=== PATIENT | female | born 1955 | race Caucasian/White ===

== ENCOUNTER → 2021-07-14 09:45 | Outpatient (CLI) | payer MEDICARE, OTHER, SELFPAY ==
[2021-07-14 11:38] LABS: COVID19 -Nasal RAPID Negative (Negative)
== END ==
PROVIDERS: PCP Student in an Organized Health Care Education/Training Program; Visit Provider Nurse Practitioner Family
DX: Z20.822 Contact with and (suspected) exposure to COVID-19 (principal); Z01.812 Encounter for preprocedural laboratory examination
CPT/HCPCS: 87635; C9803

== ENCOUNTER 2021-07-15 09:22 | Day surgery (SDC) | payer MEDICARE, OTHER, SELFPAY ==
[2021-07-15] VITALS (7 sets, daily range): BP systolic 104–129; BP diastolic 41–63; PULSE 77–84; RESP 12–18; TEMP 36.4–36.8; O2SAT 88–100; BMI 27.6
--- NOTE | 2021-07-15 | PATH_ITS ---
[facility] Accession Number: [id number] . 01 Material submitted: . PART A: gastrointestinal site - GASTRIC POLYP PART B: colon - COLON POLYPS X4 . 01 Clinical history: . DX COLONOSCOPY / EGD . 02 Diagnosis: A. Gastric Polyp: Fundic gland polyp. No evidence of Helicobacter organisms on H/E stain. Negative for intestinal metaplasia. Negative for dysplasia and malignancy. . B. Colon Polyps x4: Portions of tubular adenoma x2. Multiple fragments of acellular debris. MRV 07/17/2021 1007 Local . 02 Electronically signed: . Suha Waterman MD, Pathologist NPI- [id number] . 01 Gross description: . Part A: GASTRIC POLYP: Received in formalin is 1 fragment(s) of rob, soft tissue measuring 0.3 x 0.2 x 0.2 cm submitted entirely in 1 cassette(s) Part B: COLON POLYPS X4: Received in formalin are multiple fragment(s) of rob, soft tissue measuring 2.5 x 1.0 x 1.0 cm in aggregate submitted entirely in 1 cassette(s) /QBJ 07/16/2021 0709 Local . 02 Pathologist provided ICD-10: K63.5 . 02 CPT . 657707, [id number] Performed at: 01 [facility] [address], [place], [place] [id number] MD Daryn Salas MD Phone: [phone] Performed at: 02 [facility] [place] [address] [place], [place] [id number] MD Patrizia Infante MD Phone: [phone]
--- NOTE | 2021-07-15 10:12 | PM.HP.1 ---
History of Present Illness History of Present Illness Date Patient Seen: 07/15/21 Time Patient Seen: 10:12 Chief complaint: DX COLONOSCOPY & EGD Narrative: I reviewed my note from June 03 no major changes. Patient History Medical History Adenomatous colon polyp Anxiety Sorto's esophagus Cardiac dysrhythmia Cataract Cholecystectomy planned Chronic GERD Colonoscopy planned Constipation Depression Fibromyalgia Hernia Hiatal hernia Hypertension Hypothyroid IBS (irritable bowel syndrome) Lactose intolerance Memory impairment Osteopenia Rheumatoid aortitis Tonsillectomy planned Surgical History History of arthroplasty History of right oophorectomy Hx of appendectomy Family & Social History Social History: household members spouse Tobacco & Substance use: Smoking Status Never smoker alcohol intake never Substance Use Type does not use Meds Home Medications and Allergies Home Medications Medication Instructions Recorded Confirmed Type Tylenol Arthritis Pain 650 mg PO DAILY 07/15/21 07/15/21 History atorvastatin 20 mg tablet 20 mg PO DAILY 07/15/21 07/15/21 History duloxetine 20 mg capsule,delayed 20 mg PO DAILY 07/15/21 07/15/21 History release famotidine 20 mg tablet 20 mg PO DAILY 07/15/21 07/15/21 History hydroxychloroquine 200 mg tablet 300 mg PO DAILY 07/15/21 07/15/21 History levothyroxine 50 mcg tablet 50 mcg PO DAILY 07/15/21 07/15/21 History (Synthroid) lisinopril 20 mg tablet 20 mg PO DAILY 07/15/21 07/15/21 History pregabalin 50 mg capsule 50 mg PO DAILY 07/15/21 07/15/21 History tolterodine 4 mg capsule,extended 4 mg PO DAILY 07/15/21 07/15/21 History release 24 hr (Detrol LA) Allergies Allergy/AdvReac Type Severity Reaction Status Date / Time prochlorperazine Allergy Severe Anaphylaxis Verified 07/15/21 10:03 [From Compazine] meperidine Allergy Mild ITCHING Verified 07/15/21 10:03 oxycodone Allergy Mild ITCHING Verified 07/15/21 10:03 Penicillins Allergy Mild ITCHING Verified 07/15/21 10:03 Review of Systems Review of Systems ROS: Yes All systems reviewed with the patient and are negative except as otherwise documented Exam Vital Signs (past 8 hours): - 07/15/21 10:05 Temperature 97.6 F Pulse Rate 80 Respiratory Rate 18 Blood Pressure 127/63 Pulse Oximetry 100 Oxygen Delivery Method Room Air Const General: cooperative and comfortable Orientation: alert HENMT Head: normocephalic Ears: external ears normal Nose: external nose normal Face and sinus: normal facial exam Mouth: oral mucosae normal Eyes General: appearance normal, both eyes and all related structures Neck Neck: normal visual inspection Chest Chest: normal inspection of the chest Resp Effort & Inspection: normal respiratory effort Auscultation: clear to auscultation bilaterally Cardio Rate: regular rate Rhythm: regular rhythm Heart Sounds: no murmurs GI Inspection: normal to inspection Palpation: soft and No tender Auscultation: normal bowel sounds Skin General: no rashes or lesions noted and No jaundice Neuro General: patient alert and moves all extremities Cognition: normal cognition Speech: speech normal Extrem General: no pedal edema Psych Appearance: grossly normal Assessment & Plan Assessment & Plan narrative: Dysphagia history of possible Sorto's. Personal history of colon polyps. EGD and colonoscopy are pursued today. Time Spent With Patient Critical Care time: I spent a total of [] minutes of critical care time on this patient's care today; this time is exclusive of procedural time.
--- NOTE | 2021-07-15 10:15 | PM.PREOP ---
Pre-operative Note COVID-19 COVID-19 status: Negative Result date/Date tested (Pos, Neg/Pending): 07/14/21 Interval Note History & Physical reviewed/Exam performed by Physician: Yes Changes to H&P: No ASA Class (for procedural sedation): III
[2021-07-15] MEDS: SODIUM CHLORIDE 0.9% 1,000 ML 84 ML IV (10:19)
--- NOTE | 2021-07-15 11:37 | P.OP.EGD&C_ITS ---
Operative Date/Time/Diagnoses Date of procedure: 07/15/21 Time of procedure: 11:37 Pre-op diagnosis: Dysphagia remote history of possible Sorto's personal history of colon polyps Post-op diagnosis: same Procedure & Clinicians Study performed: EGD with biopsy colonoscopy with hot snare polypectomy Same procedure as scheduled: Yes Indications: Dysphagia remote history of possible Sorto's personal history of colon polyps Surgeon: Corona Villa Procedure Notes SCOAP/Timeout: Done Procedure in detail: After the risks and benefits were explained, written and verbal informed consent was obtained. The patient was brought into the procedure room and placed into the left lateral decubitus position. Please see nurse dispatcher chief coal slurry notes for sedation details. The scope was introduced into the mouth through the bite block and advanced under direct visualization to the 2nd portion of the duodenum. The scope was slowly withdrawn carefully examining the mucosa for any defects or lesions. Retroflexed views were accomplished in the stomach. The stomach was decompressed, the scope was then removed from the patient who tolerated the procedure well. The patient was then turned around digital rectal examination was accomplished no significant pathology appreciated the scope was introduced into the rectum and advanced to the cecum as identified by the appendiceal orifice and ileocecal valve. The scope was slowly withdrawn to carefully examine the mucosa for any defects or lesions. Multiple direct views were made through the dentate line for exclusion of pathology the colon was decompressed scope removed the patient tolerated the procedure well. Bowel prep adequate Pediatric colonoscope Scope withdrawal time: 10 minutes Sedation minutes: 38 Complications: none Impression: 1. Duodenum this is visually normal from the bulb through the 2nd portion. 2. Stomach: Patient had a few diminutive benign-appearing gastric polyps. One of these was sampled for histopathologic analysis. Retroflexed views of the LES were otherwise unremarkable. No significant pathology appreciated in the stomach. 3. Esophagus: The squamocolumnar junction basically correlated with the top of the gastric folds. The Z-line wondered slightly. No obvious suggestion of Sorto's. GE junction is at 36 cm from the incisors. Scant LA grade a erosive esophagitis was noted. I did not appreciate a stricture or ring. There was a small to moderate-sized sliding hiatal hernia present. The remainder of the esophagus was unremarkable. 4. Colon: Patient had a very tortuous challenging navigation. In the transverse colon there were 3 polyps and in the proximal descending 1 polyp all removed with hot snare polypectomy. These ranged in size from approximately 6 mm up to about 9 mm each. No additional significant pathology appreciated throughout. Endoscopic diagnosis 1. Hiatal hernia 2. Diminutive gastric polyps 3. LA grade a erosive esophagitis 4. Multiple colon polyps 5. Tortuous colon Post-procedure Recommendations: Colonscopy in 3 years Plan for aftercare: 1. Await histopathology 2. Continue anti-reflux therapy 3. Continue bowel regimen for soft regular stools 4. Repeat colonoscopy 3 years. Disposition: PACU
== END 2021-07-15 12:35 | disposition home or self-care (01) ==
PROVIDERS: PCP Student in an Organized Health Care Education/Training Program; Referring Provider Internal Medicine Gastroenterology; Visit Provider Internal Medicine Gastroenterology
PROC: 0DJ08ZZ Inspection of Upper Intestinal Tract, Via Natural or Artificial Opening Endoscopic (ICD-10-PCS; CPT 43235; principal; 2021-07-15 11:00)
PROC: 0DJD8ZZ Inspection of Lower Intestinal Tract, Via Natural or Artificial Opening Endoscopic (ICD-10-PCS; CPT 45378; 2021-07-15 11:00)
DX: Z12.11 Encounter for screening for malignant neoplasm of colon (principal); R13.10 Dysphagia, unspecified; Z86.010 Personal history of colon polyps; K44.9 Diaphragmatic hernia without obstruction or gangrene; I10 Essential (primary) hypertension; E03.9 Hypothyroidism, unspecified; K21.9 Gastro-esophageal reflux disease without esophagitis; F32.9 Major depressive disorder, single episode, unspecified; F41.9 Anxiety disorder, unspecified; Z87.19 Personal history of other diseases of the digestive system; K20.80 Other esophagitis without bleeding; K31.7 Polyp of stomach and duodenum; D12.6 Benign neoplasm of colon, unspecified
CPT/HCPCS: 45385; 43239; J2704

== ENCOUNTER → 2021-12-04 11:24 | Outpatient (CLI) | payer MEDICARE, OTHER, SELFPAY ==
[2021-12-04 12:36] LABS: Appearance Urine UA CLEAR; Bilirubin Urine UA NEGATIVE (NEGATIVE); Color Urine UA YELLOW; Glucose Urine UA TRACE g/dL (Negative); Ketones Urine UA NEGATIVE (NEGATIVE); Leukocyte Esterase Urine UA TRACE (NEGATIVE); Nitrite Urine UA NEGATIVE (Negative); Occult Blood Urine UA NEGATIVE (Negative); Protein Urine UA NEGATIVE (Negative); Specific Gravity Urine UA <=1.005 (1.000-1.035); Urobilinogen Urine UA 0.2 E.U./dL (0.2)
[2021-12-04 12:38] LABS: pH Urine UA 6.5 (4.5-8.0)
[2021-12-04 12:44] LABS: Bacteria Urine None Seen; Culture Indicated Urine Cult Not Indicated; RBC Urine None Seen (0-5/HPF); Urine Comments Microscopic Normal; WBC Urine None Seen (0-5/HPF)
[2021-12-04 12:47] LABS: Add Manual Diff / Slide Review NO; Basophils Absolute Auto 100 /uL (0-100); Basophils Percent Auto 0.9 % (0-2); Eosinophils Absolute Auto 100 /uL (0-450); Eosinophils Percent Auto 2.5 % (2-4); Hematocrit 40.7 % (36-46); Hemoglobin 13.6 g/dL (12.0-16.0); Lymphocytes Absolute Auto 1700 /uL (1100-4500); Lymphocytes Percent Auto 28.5 % (25-40); Mean Corpuscular HGB Conc 33.4 % (30-36); Mean Corpuscular Volume 89.9 fL (80-100); Monocytes Absolute Auto 400 /uL (0-900); Monocytes Percent Auto 7.4 % (3-14); Neutrophils Absolute Auto 3600 /uL (1500-7000); Neutrophils Percent Auto 60.7 % (50-75); Platelet Count 236 X10^3/uL (150-400); Red Blood Cell Count 4.53 X10^6/uL (4.0-5.2); Red Cell Distribution Width 14.4 % (11.6-14.8); White Blood Cell Count 5.9 X10^3/uL (4.5-11.0)
[2021-12-04 12:50] LABS: Hemoglobin A1C% w Est Avg Glu 5.8 % (4.0-6.0)
[2021-12-04 13:01] LABS: BUN Creatinine Ratio 22.6 (6-22); Blood Urea Nitrogen 14 mg/dL (7-17); Calcium 9.9 mg/dL (8.4-10.2); Carbon Dioxide 27 mmol/L (22-32); Chloride 99 mmol/L (98-107); Estimated Glomerular Filt Rate > 60.0 mL/min (>60); Glucose 80 mg/dL (80-110); HEMOLYSIS < 15 (0-50); Potassium 4.9 mmol/L (3.4-5.1); Sodium 134 mmol/L (137-145)
== END ==
PROVIDERS: PCP Student in an Organized Health Care Education/Training Program; Referring Provider Orthopaedic Surgery; Visit Provider Orthopaedic Surgery
DX: Z01.818 Encounter for other preprocedural examination (principal); R73.9 Hyperglycemia, unspecified; Z01.812 Encounter for preprocedural laboratory examination; E78.5 Hyperlipidemia, unspecified; N39.0 Urinary tract infection, site not specified
CPT/HCPCS: 36415; 80048; 81001; 83036; 85025; 93005

== ENCOUNTER → 2021-12-15 09:55 | Outpatient (CLI) | payer MEDICARE, OTHER, SELFPAY ==
[2021-12-15 13:12] LABS: COVID19 -Nasal RAPID Negative (Negative)
== END ==
PROVIDERS: PCP Student in an Organized Health Care Education/Training Program; Visit Provider Family Medicine Sleep Medicine
DX: Z20.822 Contact with and (suspected) exposure to COVID-19 (principal)
CPT/HCPCS: 87635; C9803

== ENCOUNTER 2021-12-16 06:01 | Day surgery (SDC) | payer MEDICARE, OTHER, SELFPAY ==
[2021-12-08 10:39] VITALS: BMI 28.0
[2021-12-16] VITALS (14 sets, daily range): BP systolic 101–147; BP diastolic 40–65; PULSE 69–92; RESP 13–19; TEMP 36–36.7; O2SAT 91–100; BMI 28.0
--- NOTE | 2021-12-16 | DI.RAD.S_ITS ---
PROCEDURE: XR HIP W PEL IF DONE LT 2V INDICATIONS: LEFT TIFFANI TECHNIQUE: 2 view(s) of the hip acquired. COMPARISON: None. FINDINGS: Bones: Patient is status post left hip arthroplasty, with hardware components in expected positions. The hip joint appears congruent. The visualized bony structures appear intact. Soft tissues: Overlying postoperative changes are noted. No suspicious soft tissue densities. IMPRESSION: Intraoperative fluoroscopic views demonstrating left hip arthroplasty. Dictated by: Cristian Malcolm M.D. on 12/16/2021 at 11:29 Approved by: Cristian Malcolm M.D. on 12/16/2021 at 11:30
--- NOTE | 2021-12-16 06:32 | DI.RAD.S_ITS ---
PROCEDURE: XR HIP W PEL IF DONE LT 2V INDICATIONS: prosthesis placement TECHNIQUE: AP pelvis and lateral view of the left hip acquired. COMPARISON: [facility], CR, XR HIP W PEL IF DONE LT 2V, 12/16/2021, 9:29. [facility], CR, XR PELVIS WITH LATERAL HIP LEFT, 11/20/2021, 11:52. FINDINGS: Bones: Patient is status post left hip arthroplasty, with hardware components in expected positions. The hip joint appears congruent. The visualized bony structures appear intact. Soft tissues: Overlying postoperative changes are noted. No suspicious soft tissue densities. IMPRESSION: Normal postoperative examination. Dictated by: Vinh Ayala M.D. on 12/16/2021 at 11:03 Approved by: Vinh Ayala M.D. on 12/16/2021 at 11:03
[2021-12-16] MEDS: CELECOXIB 200 MG CAPSULE PO (07:22)
[2021-12-16] MEDS: PREGABALIN 75 MG CAPSULE PO (07:22)
[2021-12-16] MEDS: ACETAMINOPHEN 325 MG TABLET 975 MG PO (07:22)
[2021-12-16] MEDS: VANCOMYCIN 1,000 MG/200 ML PIGGYBACK 200 MG IV (07:31)
--- NOTE | 2021-12-16 07:35 | PM.PREOP ---
Pre-operative Note COVID-19 COVID-19 status: Negative Interval Note History & Physical reviewed/Exam performed by Physician: Yes Changes to H&P: No
--- NOTE | 2021-12-16 07:44 | PM.OP.1 ---
Operative Date/Time/Diagnoses Date of procedure: 12/16/21 Time of procedure: 08:00 Pre-op diagnosis: left hip OA Post-op diagnosis: same Procedure & Clinicians Procedure: left total hip arthroplasty anterior approach Same procedure as scheduled: Yes Indications: The patient has had progressively worsening left hip pain with radiographic changes consistent with arthritis. Non-operative management has failed and the patient has requested total hip replacement. The risks, benefits and alternatives to surgery were discussed with the patient prior to proceeding. Risks discussed included, but were not limited to, failure to relieve pain, leg length discrepancy, dislocation, stiffness, infection, nerve damage, deep venous thrombosis, pulmonary embolism, stroke, coma, heart attack, permanent paralysis and , as well as the potential need for eventual revision of the prosthetic. Surgeon: Chante Spencer Collar Baster Jumpbasting: Dee Arevalo Anesthesia Type: General and Spinal Operative Notes Findings: Severe left hip osteoarthritis, adequate stability, adequate bone Closure Type: primary Specimen(s): none sent Prosthetic devices, grafts, tissues, transplants, or devices: Spencer and nephew size 46 R3, size 2 anthology standard offset, 28 x -3 Oxinium head, three 6.5 mm screws, Estimated Blood Loss (mL): 250 Blood products transfused: none Procedure in detail: The patient was brought to the operating room. Patient was carefully positioned in the supine position. Time-out was performed and antibiotics were given. Anesthesia was induced. She was positioned in the on the table in order to allow hyperextension of the hip. The left lower extremity was prepped and draped in a standard sterile fashion. An anterior left hip incision was made 1 fingerbreadth lateral to the anterior superior iliac spine and extended distally towards the greater trochanter. Dissection was carried out through skin and subcutaneous tissues. Superficial hemostasis was achieved. The fascia over the tensor fascia mayra was defined and incised with a knife. Two Allis clamps were used to grasp the fascia. Tensor fascia mayra was retracted laterally. A gelpi retractor was placed. Dissection was carried out down along the neck. The circumflex vessels were carefully identified and cauterized with the Aqua Mantis. There was good visualization of the femoral neck. A Cobra was placed superior to the neck and the gluteus fibers were carefully stripped from that superior aspect of the capsule. A 2nd retractor was placed along the inferior aspect of the neck. The rectus insertion along the capsule was partially released. A 3rd retractor that was then gently placed over the rim of the acetabulum under the rectus. Capsule was carefully incised and released from the intertrochanteric line circumferentially superior to the mid sagittal line and inferiorly to the mid sagittal line until the lesser trochanter was palpable. A tag stitch was placed both in the superior and inferior limb of the capsular insertion. Along the acetabulum capsule was also released up to the mid sagittal 12:00 position. A portion of the labrum was resected. A saw was used to perform an osteotomy at the level of the intertrochanteric line and the junction of the superior femoral neck leaving approximately 1 finger breath of residual inferior neck above the lesser trochanter. A 2nd cut was made along the femoral neck at the base of the head and a napkin ring of neck was removed. Corkscrew was placed in the femoral head and the head was removed without difficulty. Retractors were then repositioned around the acetabulum. Residual labrum was resected and additional osteophytes were removed. A reamer that was 4 mm below the templated size was placed by hand in the acetabulum and it was reamed to centralize the acetabulum. It was then reamed up to 2 under the templated size and fluoroscopy was brought in to confirm the position of the reaming and depth of reaming. I reamed 1 under the anticipated size. A trial cup was placed and noted that it was appropriately sized and fluoroscopy confirmed position and depth. The component was open and inserted without difficulty fluoroscopic imaging was used to confirm that the cup had been adequately seated and was well positioned. It was stabilized with 2 screws. Neutral poly liner was placed. The cup was tested and noted to be stable. Attention was then directed to the femur. The femur was gently hyperextended additional capsular release was performed as needed in order to allow adequate visualization of the proximal femur with elevation of the femur. Patient was placed in a hyperextended slightly adducted position with maximum external rotation. Box osteotome was used to check for any residual neck as well as sclerotic bone along the trochanter. [place] pepper was placed in the femur. Additional broaching was performed. Canal finder was used to determine the alignment of the canal and position. Size 1 broach was placed. The canal was then appropriately broached up to the templated size as long as there was adequate stability of the broach and serial advancement of the broach without excessive impingement. Specific attention was directed at avoiding varus attempting to direct the distal aspect of the broach more anteriorly and avoiding excessive anteversion. Trial reduction showed significant anterior instability. It was felt that this was not acceptable and that there was a problem with the cup having excessive anteversion. There was posterior impingement. It was felt that it will we should change the cup position. Femoral component was removed. Acetabular liner was removed. Screws were removed. The cup was removed and additional reaming was performed in order to seat the cup about 2 mm deeper. It was impacted into place and then fixed with 3 screws. Because of previous instability opted to place a trial liner to make sure this was a good position although it looked good both radiographically and clinically. Next the femoral trial was replaced. Reduction showed good stability and full range of motion. There was no residual posterior impingement. There was no anterior instability. Acceptable range of motion, good stability, no posterior impingement, jew of leg length and appropriate lateral shuck. I also hyperflexed the hip and checked that there was no impingement anteriorly and there was good stability with flexion, adduction and internal rotation. Final neutral poly was placed without difficulty. Marcaine and Exparel were injected. The stem was placed without difficulty. Repeat trial reduction and x-ray showed acceptable overall position, length, and no evidence of the femoral fracture. Final head was placed. Wound was meticulously irrigated with normal saline. The hip was reduced and additional Exparel and Marcaine were injected. The capsule was closed with interrupted nonabsorbable sutures. The fascia of the tensor was closed with interrupted and running Vicryl. No drain was placed. Any tensor fascia mayra muscle that appeared to be contused or injured which was a minimal amount was carefully resected. Capsule around the tensor was injected with Exparel and Marcaine. The skin was closed with barbed stitches for the subcutaneous tissue and skin. We also used surgical glue. The wound was dressed sterilely. Brief Betadine soak was also used and was meticulously irrigated with normal saline. Patient was transferred to recovery room in satisfactory condition. Complications: none Post-operative Condition: stable Disposition: Acute Care Plan for aftercare: The patient will be maintained on a standard total hip replacement protocol with weight bearing as tolerated and anterior hip precautions. The patient will receive Aspirin and sequential compression devices for DVT prophylaxis. The patient will be discharged home when safe for the home environment.
[2021-12-16] MEDS: TRANEXAMIC ACID 1,000 MG VIAL 1000 MG INJ ×2 (08:15→11:06)
[2021-12-16] MEDS: CEFAZOLIN 2 GM/20 ML SYRINGE IV ×2 (08:15→16:58)
--- NOTE | 2021-12-16 08:31 | SUR.OPER ---
Supine on padded [place] table with bilateral legs secured in padded positioning boots and suspended in positioning spars, operative leg in traction per surgeon. Head on one pillow. Arm on non-operative side secured on padded armboard <90 degrees abduction. Arm on operative side padded and resting across chest then secured with tape over sheet. Padded perineal post in place per surgeon.
[2021-12-16] MEDS: BUPIVACAINE LIPOSOME 266 MG/20 ML VIAL INJ (08:43)
[2021-12-16] MEDS: BUPIVACAINE 0.25% (PF) 60 ML, EPINEPHrine 0.3 MG INJ (08:44)
[2021-12-16] MEDS: SODIUM CHLORIDE IRRIG SOLUTION 250 ML, POVIDONE-IODINE SPONGE STICKS 1 APPLIC IRR (08:44)
[2021-12-16] MEDS: LACTATED RINGERS 1,000 ML 100 ML IV (09:43)
[2021-12-16] MEDS: LACTATED RINGERS 1,000 ML 125 ML IV ×2 (13:25→20:33)
[2021-12-16] MEDS: IBUPROFEN 400 MG TABLET PO ×3 (13:35→20:08)
--- NOTE | 2021-12-16 13:41 | PC.NURSE ---
Pt to room 209 via bed at 1245 from PACU. Pt is awake, alert, and oriented x 3. Pt denies pain, nausea, or shortness of breath. States her legs still feel a bit numb but she is able to wiggle her toes. SCD's on and running. IVF infusing as ordered. Oriented Pt to room, call light, tv controls, and bed controls. Pt is aware that she must not get up without assistance and to use call light for assistance.
--- NOTE | 2021-12-16 15:28 | PT-IP ANOTE ---
checked on pt x2 and pt is still numb on her legs and very drowsy. pt not ready for PT eval. will f/u tomorrow.
[2021-12-16] MEDS: FAMOTIDINE 20 MG TABLET PO (16:56)
[2021-12-16] MEDS: PANTOPRAZOLE DR 20 MG TABLET PO (16:58)
[2021-12-16] MEDS: ACETAMINOPHEN 325 MG TABLET 650 MG PO (20:05)
[2021-12-16] MEDS: DOCUSATE 100 MG CAPSULE PO (20:08)
[2021-12-16] MEDS: ASPIRIN EC 81 MG TABLET PO (20:08)
[2021-12-17] VITALS: BP 148/54; PULSE 89; RESP 18; TEMP 36.3; O2SAT 97
[2021-12-17] MEDS: IBUPROFEN 400 MG TABLET PO ×3 (00:13→09:30)
[2021-12-17] MEDS: TRAMADOL 50 MG TABLET PO ×2 (00:13→06:25)
[2021-12-17] MEDS: CEFAZOLIN 2 GM/20 ML SYRINGE IV (00:13)
--- NOTE | 2021-12-17 00:22 | RT ---
went to access pt at beginning of shift . she was unavailable at the time , when i checked later she was asleep , assessment still pending
[2021-12-17 04:30] VITALS: BP 133/51; PULSE 68; RESP 18; TEMP 36.6; O2SAT 99
[2021-12-17 05:08] LABS: Hematocrit 31.3 % (36-46); Hemoglobin 10.5 g/dL (12.0-16.0)
[2021-12-17] MEDS: FAMOTIDINE 20 MG TABLET PO (06:05)
[2021-12-17] MEDS: PANTOPRAZOLE DR 20 MG TABLET PO (06:05)
[2021-12-17] MEDS: LEVOTHYROXINE 50 MCG TABLET PO (06:06)
--- NOTE | 2021-12-17 07:56 | PM.DS.1 ---
History of Present Illness History of Present Illness Date Patient Seen: 12/17/21 Time Patient Seen: 07:56 Chief complaint: LT TIFFANI *OPB* Narrative: Operative Date/Time/Diagnoses Date of procedure: 12/16/21 Time of procedure: 08:00 Pre-op diagnosis: left hip OA Post-op diagnosis: same Procedure & Clinicians Procedure: ?left total hip arthroplasty anterior approach Same procedure as scheduled: Yes Indications: The patient has had progressively worsening left hip pain with radiographic changes consistent with arthritis. Non-operative management has failed and the patient has requested total hip replacement. The risks, benefits and alternatives to surgery were discussed with the patient prior to proceeding. Risks discussed included, but were not limited to, failure to relieve pain, leg length discrepancy, dislocation, stiffness, infection, nerve damage, deep venous thrombosis, pulmonary embolism, stroke, coma, heart attack, permanent paralysis and , as well as the potential need for eventual revision of the prosthetic. Surgeon: Chante Spencer Slip Seat Coverer: Dee Arevalo Anesthesia Type: General and Spinal Operative Notes Findings: Severe left hip osteoarthritis, adequate stability, adequate bone Closure Type: primary Specimen(s): none sent Prosthetic devices, grafts, tissues, transplants, or devices: Spencer and nephew size 46 R3, size 2 anthology standard offset, 28 x -3 Oxinium head, three 6.5 mm screws, Estimated Blood Loss (mL): 250 Blood products transfused: none Discharge Providers Provider Discharge Date: 12/17/21 Primary care physician: Keely Driscoll PA-C Consults: 12/10/21 07:47 Consult to Anesthesiology Routine Comment: Consulting Provider: Anesthesiologist Reason for consultation: PAC courtesy re: Demyelinating disease 12/16/21 06:32 Consult to Anesthesiology Routine Comment: Consulting Provider: Anesthesiologist Reason for consultation: Regional block for post operative pain control 12/16/21 12:42 Consult to Discharge Planning Routine Comment: Consult to Physical Therapy Evaluate & Treat Comment: Physician Instructions: post op TIFFANI protocol Consult to Respiratory Therapy Evaluate & Treat Comment: Physician Instructions: Evaluate and treat 12/16/21 13:20 Consult to Pastoral Services Routine Comment: if available Discharge provider: Shanika Landry PA-C Summary Hospital Course Discharge Diagnosis: s/p L TIFFANI Hospital Course: Ms Finch's hospital course was unremarkable. On POD# 1 she was feeling well and wanted to go home. She was eating and voiding without difficulty and her pain was well-controlled with oral medication. She was evaluated by PT prior to discharge. Exam Vital Signs (past 8 hours): - 12/17/21 00:00 12/17/21 04:30 Temperature 97.4 F L 97.9 F Pulse Rate 89 68 Respiratory Rate 18 18 Blood Pressure 148/54 H 133/51 L Pulse Oximetry 97 99 Oxygen Delivery Method Room Air Oxygen Flow Rate 0 Narrative Exam Narrative: 4/5 strength in left hip flexors; 5/5 in quadriceps, hamstrings, DF, PF, EHL. Sensation to light touch intact in BLE. Calves soft, compressible, nontender without palpable cords or masses. Aquacel dressing CDI. Const General: cooperative and healthy appearing Orientation: alert, awake and oriented x3 Objective Labs Result Diagrams: 12/17/21 04:42 Labs: Laboratory Results - last 24 hr 12/17/21 04:42 Hgb 10.5 L Hct 31.3 L PFSH Medical History (Updated 12/08/21 @ 14:38 by Brianna Heck RN) Adenomatous colon polyp Anxiety Sorto's esophagus Cardiac dysrhythmia Cataract Cholecystectomy planned Chronic GERD Colonoscopy planned Constipation Demyelinating disease (~2007) Depression Easy bruisability Fibromyalgia GERD (gastroesophageal reflux disease) Hernia Hiatal hernia HLD (hyperlipidemia) Hypertension Hypothyroid IBS (irritable bowel syndrome) Lactose intolerance Memory impairment Osteoarthritis Osteopenia Raynaud's disease Rheumatoid aortitis Seasonal allergies Tonsillectomy planned Surgical History (Updated 12/17/21 @ 07:52 by Shanika Landry PA-C) History of arthroplasty of left shoulder History of Shilpa fundoplication History of right oophorectomy History of surgery Hx of appendectomy Hx of bilateral cataract extraction Hx of cholecystectomy Hx of hand surgery Hx of hernia repair Hx of tonsillectomy Social History household members: spouse Smoking Status: Never smoker alcohol intake: former Discharge Assessment & Plan Assessment and Plan Assessment: POD# 1 s/p left total hip arthroplasty, anterior approach. Acute anemia d/t expected surgical blood loss. Plan of Treatment: Discharge home w/ multimodal pain control, ASA 81 mg BID x 6 weeks for VTE prophylaxis, outpt PT. Discharge Plan Discharge Plan Patient Disposition: Home Discharge orders & Medications Discharge Orders: Discharge (Order); Ordered 12/17/21 Ordered By: Shanika Landry Prescriptions: New docusate sodium 100 mg Capsule 100 mg PO BID PRN (Reason: constipation) Qty: 60 2RF ibuprofen 400 mg Tablet 400 mg PO Q4HR Qty: 180 1RF aspirin 81 mg Tablet,Delayed Release (Dr/Ec) 81 mg PO BID Qty: 90 0RF tramadol 50 mg Tablet 50 mg PO QID PRN (Reason: Pain, Moderate (4-6)) Qty: 60 0RF Continued atorvastatin 20 mg tablet 20 mg PO DAILY 0RF tolterodine [Detrol LA] 4 mg Capsule,Extended Release 24hr 4 mg PO DAILY 0RF lisinopril 20 mg tablet 20 mg PO DAILY 0RF acetaminophen 650 mg Tablet Extended Release 1,300 mg PO DAILY Qty: 0 0RF famotidine 20 mg tablet 20 mg PO BID 0RF levothyroxine [Synthroid] 50 mcg tablet 50 mcg PO DAILY 0RF hydroxychloroquine 200 mg tablet 300 mg PO DAILY 0RF duloxetine 20 mg capsule,delayed release(DR/EC) 20 mg PO DAILY 0RF sertraline 100 mg Tablet 150 mg PO DAILY 0RF lansoprazole 15 mg Capsule,Delayed Release(Dr/Ec) 15 mg PO BID 0RF Follow up/Referrals: Keely Driscoll PA-C [Primary Care Provider] - Chante Spencer MD [Physician] - As previously scheduled (Follow up with Dee Arevalo PA-C, on 12/30/2021 @ 4:20 pm at [facility] in [place].) Diet/Activity/Treatments Diet: Diet as Tolerated Activity: Walk frequently. Anterior hip precautions. Cold/Heat Therapy: Ice to hip as needed for pain. Skin/Wound/Dressing Care Report to your healthcare provider any signs of infection, such as:: chills, fever, night sweats, unusual drainage and unusual redness Dressing: May shower. Leave dressing in place until follow up in office. No bathing or otherwise soaking incision. Visit Report/Discharge Packet Instructions: DI for Hip Replacement Stand Alone Forms: Surgery Discharge Discharge Data Primary Care Provider: Keely Driscoll Attending Provider: Chante Spencer Quality VTE Deep Vein Thrombosis/Pulmonary Embolism Present on Admission: No
[2021-12-17 08:00] VITALS: BP 133/51; PULSE 71; RESP 16; TEMP 36.3; O2SAT 96
[2021-12-17 09:29] VITALS: BP 133/51; PULSE 71
[2021-12-17] MEDS: lisinopriL 20 MG TABLET PO (09:29)
[2021-12-17] MEDS: ASPIRIN EC 81 MG TABLET PO (09:30)
[2021-12-17] MEDS: OXYBUTYNIN 5 MG ER TAB 10 MG PO (09:30)
[2021-12-17] MEDS: DULOXETINE 20 MG CAPSULE PO (09:30)
[2021-12-17] MEDS: SERTRALINE 50 MG TABLET 150 MG PO (09:30)
[2021-12-17] MEDS: HYDROXYCHLOROQUINE 200 MG TABLET 300 MG PO (09:31)
[2021-12-17] MEDS: DOCUSATE 100 MG CAPSULE PO (09:32)
[2021-12-17] MEDS: ACETAMINOPHEN 325 MG TABLET 650 MG PO (09:32)
[2021-12-17 09:35] VITALS: O2SAT 100
--- NOTE | 2021-12-17 10:15 | PT.IIE ---
Current Diagnoses Unilateral primary osteoarthritis, left hip (12/16/21) Presence of unspecified artificial hip joint (12/16/21) Surgery Performed Operation Date: 12/16/21 07:45 Actual Procedures p Total Hip Arthroplasty/Anterior Approach(Left) - Chante Spencer MD Medical History (Last Updated 12/08/21 @ 14:38 by Brianna Heck RN) Adenomatous colon polyp Anxiety Sorto's esophagus Cardiac dysrhythmia Cataract Cholecystectomy planned Chronic GERD Colonoscopy planned Constipation Demyelinating disease (~2007) Depression Easy bruisability Fibromyalgia GERD (gastroesophageal reflux disease) Hernia Hiatal hernia HLD (hyperlipidemia) Hypertension Hypothyroid IBS (irritable bowel syndrome) Lactose intolerance Memory impairment Osteoarthritis Osteopenia Raynaud's disease Rheumatoid aortitis Seasonal allergies Tonsillectomy planned Physical Therapy Inpatient Evaluation/Re-Eval M1 PT/OT-IP Prior Functional Status Start: 12/17/21 13:03 Freq: NEEDED Status: Active Protocol: Document 12/17/21 10:15 AB (Rec: 12/17/21 13:17 AB [id number]) Medical Review Prior Functional Status Medical History Reviewed Yes Communication able to make needs known Mobility and Gait pt stated that she is independent with all mobilities and ambulation without AD Social History Household Members spouse Living Arrangements House Number of Floors (Floors) One Floor Number of Stairs To Enter/Railing? 2 platform steps to enter the house has one step down to sunken living room Home Environment Standard Height Toilet,High Toilet,Walk in Shower Home Equipment Front Wheel Walker Additional Social History Comment HOB is set elevated per spouse M2 PT-IP Current Condition Start: 12/17/21 13:03 Freq: NEEDED Status: Active Protocol: Document 12/17/21 10:15 AB (Rec: 12/17/21 13:17 AB [id number]) Physical Therapy Current Condition Current Condition Evaluation Date 12/17/21 Treatment Diagnosis s/p L TIFFANI anterior approach; difficulty in walking Onset Date 12/16/21 M3 PT-IP Subjective Start: 12/17/21 13:03 Freq: NEEDED Status: Active Protocol: Document 12/17/21 10:15 AB (Rec: 12/17/21 13:17 AB [email or web address]) Subjective Physical Therapy Visit Type Type Initial Evaluation Visit Start Time 10:15 Visit Stop Time 10:55 Total Visit Minutes 40 Number of ROLLER EMBOSSER Visits 0 Physical Therapy Visit Comments Patient Comments agreeable to do PT Therapy Pain Assessment Pain When Pain Assessed At Rest Pain Present Pain Present Pain Reported Location Left Hip Intensity 6 Scale Used Numeric (0 - 10) Pain Management Techniques Distraction,Modification of Treatment,Re-positioning, Timing of Activity with Medications M4 PT-IP Mobility and Gait Start: 12/17/21 13:03 Freq: NEEDED Status: Active Protocol: Document 12/17/21 10:15 AB (Rec: 12/17/21 13:17 AB [id number]) PT-Bed Mobility Assessment Supine to Sit Supine to Sit Standby Assistance PT-Transfer Assessment Sit to and From Stand Sit to and from Stand Standby Assistance,Contact Guard Assistance,1 Person Assistance,Use of Upper Extremities Equipment Transfer Assistive Device Gait Belt,Front Wheeled Walker Orthotic/Prosthetic Devices or Brace: No Transfers Transfer Destination Chair Transfer Technique Stand Step Pivot Transfer Ability Level of Assist Contact Guard Assistance,1 Person Assistance,Use of Upper Extremities Gait Assessment Gait Gait Assistance Required: Standby Assistance,Contact Guard Assist Distance (Feet) 50 Able to Maintain Weight Bearing Status Yes During Gait Assistive Devices Assistive Device Gait Belt,Front Wheeled Walker Orthotic/Prosthetic Devices or Brace: No Gait Deviations General Gait Pattern Decreased Stride Length, Decreased Feet Clearance Factors Limiting Gait Function Factors Limiting Gait Function Decreased Activity Tolerance, Decreased Strength,Limited Range of Motion,Pain,Poor Balance,Poor Safety Awareness Comments Gait Comments educated pt and spouse regarding anterior hip precautions. pt completed supine to sit SBA. able to sit on EOB SBA. completed sit to stand SBA to CGA and step transfer to chair SBA to CGA. educated spouse on use of safety belt and how to assist pt. spouse was able to put safety belt on pt and assisted pt with sit to stand. pt ambulated in room using FWW with spouse assisting CGA. pt requested to use the toilet and ambulated to the toilet using FWW CGA. spouse was able to assist pt. pt ambulated out of the toilet towards the sink using fWW CGA and was able to maintain standing CGA while completing handwashing. pt then ambulated out of the room and completed stair climbing. educated on up/down step. pt completed using FWW CGA and cues and repeated again with spouse assisting and was able to complete safely. pt ambulate in the hallway ~ 50 ft using FWW SBA to occasional CGA. ambulated back to the room and sat on chair. Pt and spouse without any further concerns. call light and table placed within reach. Stair Climbing Assessment Evaluation Level of Assist On Stairs Contact Guard Assistance Devices Stair Climbing Assistive Devices Front Wheel Walker Technique/Endurance Stair Climbing Direction Ascend and Descend Stair Climbing Technique Step to Step Number of Steps Climbed 1 Query Text: Stair Climbing Set # Repetitions (reps) 2 PT-Balance Assessment Sitting Balance and Reactions Static Sitting Balance Ability Good Dynamic Sitting Balance Ability Good Standing Balance and Reactions Static Standing Balance Ability Fair Dynamic Standing Balance Ability Fair Device Used FWW M5 PT-IP Objective Assessments Start: 12/17/21 13:03 Freq: NEEDED Status: Active Protocol: Document 12/17/21 10:15 AB (Rec: 12/17/21 13:17 AB [id number]) Orientation Orientation/Cognition Level of Alertness Alert Orientation Name,Place,Situation Language Function Ability No Deficits Noted Safety Awareness Understands Safety Issues Memory Description No Deficits Noted Gross Range of Motion Lower Extremity ROM Assessment Within Functional Limits Strength Lower Extremity Strength Assessment Left Impaired Hip 3+/5 Knee 4-/5 Sensation Assessment Sensation Gross Sensation WNL Muscle Tone Muscle Tone WNL Yes M6 PT-IP Treatment Start: 12/17/21 13:03 Freq: NEEDED Status: Active Protocol: Document 12/17/21 10:15 AB (Rec: 12/17/21 13:17 AB [id number]) Physical Therapy Treatment Education Education Provided Precautions,Weight Bearing Status,Post-Op Packet,Safety M7 PT-IP Assessment and Plan Start: 12/17/21 13:03 Freq: NEEDED Status: Active Protocol: Document 12/17/21 10:15 AB (Rec: 12/17/21 13:17 AB [id number]) PT Summary Assessment and Plan Potential Rehabilitation Potential Good Status of Condition at Evaluation Stable Summary Impairments Pain,ROM,Strength,Balance, Coordination,Sensation,Tone, Cognition,Bed Mobility, Transfers,Gait,Activity Tolerance Assessment Summary pt requiring SBA to CGA with mobility using FWW. caregiver training conducted and spouse was able to assist pt safely. pt may go home when medically stable. Goals Bed Mobility Goal Independent Transfer Goal Independent,Front Wheeled Walker Gait Goal Independent,Front Wheel Walker Gait Distance 200 Other Goals up/down 2 platform steps using FWW SBA Days to Meet Goals 3 Frequency of Treatment Frequency Of Treatment Twice a Day Treatment Plan Physical Therapy Treatment Plan Bed Mobility Training,Transfer Training,Gait Training, Therapeutic Exercise,Balance Retraining,Post Op Education, Discharge Planning,Hot or Cold Pack,Neuromuscular Re-ed, Coordination Retraining,Manual Therapy Precautions Anterior Hip Precautions No Hip Extension,No Hip External Rotation Weight Bearing Status Weight Bearing Status Weight Bear as Tolerated Allowed Weight Bearing Amount (enter % LLE WBAT or #) (%) Recommendations To Nursing Amount of Assist Needed Standby Assistance Discharge Recommendations PT Discharge Recommendations Home with Assistance, Outpatient PT Transportation Needs at Discharge Private Vehicle
[2021-12-17] MEDS: HYDROCODONE/ACET 5/325 TABLET 1 TAB PO (11:30)
--- NOTE | 2021-12-17 11:48 | PC.NURSE ---
Addendum entered by Carlos Valadez R.N. 12/17/21 12:54: spouse to bring personal vehicle around to ER entrance, personal belongings taken by him. Patient escorted outside via WC, VSS, patient left in stable condition. Original Note: Discharge teaching done at bedside with spouse and patient. All questions an concerns were addressed. Patient has no IV access. Pain meds given prior to leaving. Patient wishes to eat lunch before leaving.
[2021-12-17 12:00] VITALS: BP 118/46; PULSE 74; RESP 16; TEMP 36.3; O2SAT 99
== END 2021-12-17 13:00 | disposition home or self-care (01) ==
LOC: OR 06:03 → AC 06:04
PROVIDERS: PCP Student in an Organized Health Care Education/Training Program; Referring Provider Student in an Organized Health Care Education/Training Program; Visit Provider Orthopaedic Surgery
PROC: (CPT 27130; principal; 2021-12-16 07:45)
DX: M16.12 Unilateral primary osteoarthritis, left hip (principal); F41.9 Anxiety disorder, unspecified; F32.9 Major depressive disorder, single episode, unspecified; K21.9 Gastro-esophageal reflux disease without esophagitis; I10 Essential (primary) hypertension; E78.5 Hyperlipidemia, unspecified; I73.00 Raynaud's syndrome without gangrene; M79.7 Fibromyalgia
CPT/HCPCS: 27130; 36415; 73502; 76000; 85014; 85018; 94762; 97161; 97530; C1776; A9270; C9290; J0171; J0690; J1100; J2250; J2274; J2405; J2704; J3010

== ENCOUNTER → 2024-04-28 12:21 | Outpatient (CLI) | payer MEDICARE, OTHER, SELFPAY ==
[2021-12-16 13:06] VITALS: BMI 28.0
--- NOTE | 2024-04-28 12:26 | EKG_ITS ---
[facility] [address] [place] [address] Test Date: 2024-04-28 Pat Name: Vicenta Finch Department: Room: Gender: Female [employer]: : 1955 Requested By: Order Number: [id number] Reading MD: Lencho Bergeron MD Measurements Intervals [place] Rate: 65 P: 60 NM: 146 QRS: 16 QRSD: 82 T: 36 QT: 388 QTc: 403 Interpretive Statements Normal sinus rhythm Electronically Signed On 04-28-2024 14:30:05 PDT by Lencho Bergeron MD
[2024-04-28 13:19] LABS: Add Manual Diff / Slide Review NO; Basophils Absolute Auto 0 /uL (0-100); Basophils Percent Auto 0.7 % (0-2); Eosinophils Absolute Auto 300 /uL (0-450); Eosinophils Percent Auto 4.4 % (2-4); Hematocrit 38.9 % (36-46); Hemoglobin 12.7 g/dL (12.0-16.0); Lymphocytes Absolute Auto 1700 /uL (1100-4500); Lymphocytes Percent Auto 25.2 % (25-40); Mean Corpuscular HGB Conc 32.7 % (30-36); Mean Corpuscular Hemoglobin 31.2 PG (26-34); Mean Corpuscular Volume 95.2 fL (80-100); Monocytes Absolute Auto 300 /uL (0-900); Monocytes Percent Auto 3.9 % (3-14); Neutrophils Absolute Auto 4400 /uL (1500-7000); Neutrophils Percent Auto 65.8 % (50-75); Platelet Count 186 X10^3/uL (150-400); Red Blood Cell Count 4.09 X10^6/uL (4.0-5.2); Red Cell Distribution Width 14.8 % (11.6-14.8); White Blood Cell Count 6.7 X10^3/uL (4.5-11.0)
[2024-04-28 13:28] LABS: Appearance Urine UA CLEAR; Bilirubin Urine UA NEGATIVE (NEGATIVE); Color Urine UA YELLOW; Glucose Urine UA NEGATIVE (Negative); Ketones Urine UA NEGATIVE (NEGATIVE); Leukocyte Esterase Urine UA NEGATIVE (NEGATIVE); Nitrite Urine UA NEGATIVE (Negative); Occult Blood Urine UA NEGATIVE (Negative); Protein Urine UA NEGATIVE (Negative); Urobilinogen Urine UA 0.2 E.U./dL (0.2)
[2024-04-28 13:33] LABS: Hemoglobin A1C% w Est Avg Glu 5.5 % (4.0-6.0)
[2024-04-28 13:40] LABS: pH Urine UA 5.5 (4.5-8.0)
[2024-04-28 13:42] LABS: Bacteria Urine None Seen; Culture Indicated Urine Cult Not Indicated; RBC Urine None Seen (0-5/HPF); Squamous Epithelial Cell Urine None Seen (0-5/HPF); Urine Volume 10mL (spun); WBC Urine None Seen (0-5/HPF)
[2024-04-28 13:48] LABS: BUN Creatinine Ratio 26.2 (6-22); Blood Urea Nitrogen 17 mg/dL (7-17); Calcium 9.9 mg/dL (8.4-10.2); Carbon Dioxide 24 mmol/L (22-32); Chloride 106 mmol/L (98-107); Estimated Glomerular Filt Rate > 60 mL/min (>60); Glucose 131 mg/dL (80-110); HEMOLYSIS < 15 (0-50); Potassium 4.2 mmol/L (3.4-5.1); Sodium 139 mmol/L (137-145)
== END ==
PROVIDERS: PCP Student in an Organized Health Care Education/Training Program; Referring Provider Orthopaedic Surgery; Visit Provider Orthopaedic Surgery
DX: Z01.818 Encounter for other preprocedural examination (principal); R73.9 Hyperglycemia, unspecified; Z01.812 Encounter for preprocedural laboratory examination; N39.0 Urinary tract infection, site not specified
CPT/HCPCS: 36415; 80048; 81001; 83036; 85025; 93005; 93010

== ENCOUNTER 2024-05-30 06:07 | Day surgery (SDC) | payer MEDICARE, OTHER, SELFPAY ==
[2021-12-16 13:06] VITALS: BMI 28.0
[2024-05-24 13:40] VITALS: BMI 25.2
[2024-05-30] VITALS (11 sets, daily range): BP systolic 122–156; BP diastolic 56–83; PULSE 58–88; RESP 12–20; TEMP 36.3–36.7; O2SAT 94–100; BMI 24.8
--- NOTE | 2024-05-30 | DI.RAD.S_ITS ---
PROCEDURE: XR HIP W PEL IF DONE RT 2V INDICATIONS: RIGHT ANTERIOR TOTAL HIP TECHNIQUE: AP pelvis and lateral view of the hip acquired. COMPARISON: [facility], [place], XR HIP W PEL IF DONE RT 2V, 05/30/2024, 9:08. FINDINGS: Expected postoperative changes with soft tissue gas status post right hip arthroplasty. No radiographic evidence of periprosthetic fracture or high attenuation surgical instrument or foreign body. Artifacts from overlying clothing or other extrinsic artifacts partially limit radiographic detail. Left hip arthroplasty without radiographic evidence of periprosthetic fracture or lucency. IMPRESSION: Expected post-operative appearance of right hip arthroplasty as discussed above. Dictated by: Chong Kwok M.D. on 05/30/2024 at 13:12 Approved by: Chong Kwok M.D. on 05/30/2024 at 13:15
--- NOTE | 2024-05-30 06:00 | DI.RAD.S_ITS ---
PROCEDURE: XR HIP W PEL IF DONE RT 2V INDICATIONS: Right total hip arthroplasty TECHNIQUE: AP pelvis and lateral view of the hip acquired. COMPARISON: [facility], [place], XR HIP W PEL IF DONE LT 2V, 12/16/2021, 11:32. FINDINGS: Four fluoroscopic spot images are submitted which demonstrate right hip arthroplasty without radiographic evidence of periprosthetic fracture or high attenuation surgical instrument or foreign body. Left hip arthroplasty is partially imaged. IMPRESSION: Expected post-operative appearance with right hip arthroplasty. Dictated by: Chong Kwok M.D. on 05/30/2024 at 11:21 Approved by: Chong Kwok M.D. on 05/30/2024 at 11:23
[2024-05-30] MEDS: VANCOMYCIN 1,000 MG/200 ML PIGGYBACK 200 MG IV (06:52)
[2024-05-30] MEDS: LACTATED RINGERS 1,000 ML 42 ML IV ×2 (06:52→08:28)
[2024-05-30] MEDS: CELECOXIB 200 MG CAPSULE PO (06:52)
[2024-05-30] MEDS: ACETAMINOPHEN 325 MG TABLET 975 MG PO (06:52)
--- NOTE | 2024-05-30 07:39 | P.OP_ITS ---
Operative Date/Time/Diagnoses Date of procedure: 05/30/24 Time of procedure: 08:00 Pre-op diagnosis: LEFT HIP OA Post-op diagnosis: same Procedure & Clinicians Procedure: Left total hip arthroplasty anterior approach Same procedure as scheduled: Yes Indications: The patient has had progressively worsening left hip pain with radiographic de dios ges consistent with arthritis. Non-operative management has failed and the patient has requested total hip replacement. The risks, benefits and alternatives to surgery were discussed with the patient prior to proceeding. Risks discussed included, but were not limited to, failure to relieve pain, leg length discrepancy, dislocation, stiffness, infection, nerve damage, deep venous thrombosis, pulmonary embolism, stroke, coma, heart attack, permanent paralysis and , as well as the potential need for eventual revision of the prosthetic. Surgeon: Chante Spencer Painter Supervisor: Cecil Snyder Anesthesia Type: General and Spinal Operative Notes Findings: Severe right hip OA, adequate stability, adequate bone Closure Type: primary Specimen(s): none sent Prosthetic devices, grafts, tissues, transplants, or devices: Spencer and nephew 46 mm R3, neutral poly liner, two 6.5 mm screw, size 2 standard offset anthology, 32 by-3 cobalt chrome head Estimated Blood Loss (mL): 250 Blood products transfused: none Procedure in detail: The patient was brought to the operating room. Patient was carefully positioned in the supine position. Time-out was performed and antibiotics were given. Anesthesia was induced. She was positioned in the on the table in order to allow hyperextension of the hip. The right lower extremity was prepped and draped in a standard sterile fashion. An anterior right hip incision was made 1 fingerbreadth lateral to the anterior superior iliac spine and extended distally towards the greater trochanter. Dissection was carried out through skin and subcutaneous tissues. The skin and subcutaneous tissues were carefully injected with Lidocaine with epi. Superficial hemostasis was achieved. The fascia over the tensor fascia mayra was defined and incised with a knife. Two Allis clamps were used to grasp the fascia. Tensor fascia mayra was retracted laterally. A gelpi retractor was placed. Dissection was carried out down along the neck. The circumflex vessels were carefully identified and cauterized with the Aqua Mantis. PA was used during the procedure and was essential for intraoperative retraction and safe implantation of the components. There was good visualization of the femoral neck. A Cobra was placed superior to the neck and the gluteus fibers were carefully stripped from that superior aspect of the capsule. A 2nd retractor was placed along the inferior aspect of the neck. The rectus insertion along the capsule was partially released. A 3rd retractor that was then gently placed over the rim of the acetabulum under the rectus. Capsule was carefully incised and released from the intertrochanteric line circumferentially superior to the mid sagittal line and inferiorly to the mid sagittal line until the lesser trochanter was palpable. A tag stitch was placed both in the superior and inferior limb of the capsular insertion. Along the acetabulum capsule was also released up to the mid sagittal 12:00 position. A portion of the labrum was resected. A saw was used to perform an osteotomy at the level of the intertrochanteric line and the junction of the superior femoral neck leaving approximately 1 finger breath of residual inferior neck above the lesser trochanter. A 2nd cut was made along the femoral neck at the base of the head and a napkin ring of neck was removed. Corkscrew was placed in the femoral head and the head was removed without difficulty. Retractors were then repositioned around the acetabulum. Residual labrum was resected and additional osteophytes were removed. A reamer that was 4 mm below the templated size was placed by hand in the acetabulum and it was reamed to centralize the acetabulum. It was then reamed up to 2 under the templated size and fluoroscopy was brought in to confirm the position of the reaming and depth of reaming. I reamed 1 under the anticipated size. A trial cup was placed and noted that it was appropriately sized and fluoroscopy confirmed position and depth. The component was open and inserted without difficulty fluoroscopic imaging was used to confirm that the cup had been adequately seated and was well positioned. It was further stabilized with two screws. Neutral poly liner was placed. The cup was tested and noted to be stable. Attention was then directed to the femur. The femur was gently hyperextended additional capsular release was performed as needed in order to allow adequate visualization of the proximal femur with elevation of the femur. Patient was placed in a hyperextended slightly adducted position with maximum external rotation. Box osteotome was used to check for any residual neck as well as sclerotic bone along the trochanter. [place] pepper was placed in the femur. Additional broaching was performed. Canal finder was used to determine the alignment of the canal and position. Size 1 broach was placed. The canal was then appropriately broached up to the templated size as long as there was adequate stability of the broach and serial advancement of the broach without excessive impingement. Specific attention was directed at avoiding varus attempting to direct the distal aspect of the broach more anteriorly and avoiding excessive anteversion. Trial reduction showed acceptable range of motion, good stability, no posterior impingement, jewish of leg length and appropriate lateral shuck. I also hyperflexed the hip and checked that there was no impingement anteriorly and there was good stability with flexion, adduction and internal rotation. Marcaine and Exparel were injected. The stem was placed without difficulty. Repeat trial reduction and x-ray showed acceptable overall position, length, and no evidence of the femoral fracture. Final head was placed. Wound was meticulously irrigated with normal saline. The hip was reduced and additional Exparel and Marcaine were injected. The capsule was closed with interrupted nonabsorbable sutures. The fascia of the tensor was closed with interrupted and running Vicryl. No drain was placed. Any tensor fascia mayra muscle that appeared to be contused or injured which was a minimal amount was carefully resected. Capsule around the tensor was injected with Exparel and Marcaine. The skin was closed with barbed stitches for the subcutaneous tissue and skin. We also used surgical glue. The wound was dressed sterilely. Brief Betadine soak was also used and was meticulously irrigated with normal saline. Patient was transferred to recovery room in satisfactory condition. Complications: none Post-operative Condition: stable Disposition: Acute Care Plan for aftercare: The patient will be maintained on a standard total hip replacement protocol with weight bearing as tolerated and anterior hip precautions. The patient will receive Aspirin and sequential compression devices for DVT prophylaxis. The patient will be discharged home when safe for the home environment.
[2024-05-30] MEDS: TRANEXAMIC ACID 1,000 MG VIAL 2000 MG INJ ×2 (08:10→09:54)
--- NOTE | 2024-05-30 08:19 | SUR.OPER ---
Patient supine on padded [place] table, one arm on padded arm board at <90, other arm padded and secured with tape across patient's chest, both legs secured in padded traction boots and positioned per surgeon, padded post at patient's groin, pressure points checked and padded.
[2024-05-30] MEDS: CEFAZOLIN VIAL 2 GM in SODIUM CHLORIDE 0.9% 100 ML IV (08:27)
[2024-05-30] MEDS: BUPIVACAINE 0.25% (PF) 60 ML, EPINEPHrine 0.3 MG INJ (08:29)
[2024-05-30] MEDS: BUPIVACAINE LIPOSOME 266 MG/20 ML VIAL INJ (08:30)
[2024-05-30] MEDS: LACTATED RINGERS 1,000 ML 100 ML IV (12:38)
[2024-05-30] MEDS: IBUPROFEN 400 MG TABLET PO ×3 (12:38→20:08)
[2024-05-30] MEDS: HYDROCODONE/ACET 5/325 TABLET 1 TAB PO ×3 (13:35→22:50)
--- NOTE | 2024-05-30 15:15 | PT.IIE ---
Current Diagnoses Unilateral primary osteoarthritis, right hip (05/30/24) Surgery Performed Operation Date: 05/30/24 07:45 Actual Procedures p Total Hip Arthroplasty/Anterior Approach(Right) - Chante Spencer MD Surgical History (Last Reviewed 05/30/24 @ 07:04 by Andressa Morley, RN) History of arthroplasty of left shoulder History of Shilpa fundoplication History of right oophorectomy History of surgery Hx of appendectomy Hx of bilateral cataract extraction Hx of cholecystectomy Hx of hand surgery Hx of hernia repair Hx of tonsillectomy Medical History (Last Reviewed 05/30/24 @ 07:04 by Andressa Morley, RN) Adenomatous colon polyp Anxiety Sorto's esophagus Cardiac dysrhythmia Cataract Cholecystectomy planned Chronic GERD Colonoscopy planned Constipation Demyelinating disease (~2007) Depression Easy bruisability Fibromyalgia GERD (gastroesophageal reflux disease) Hernia Hiatal hernia HLD (hyperlipidemia) Hypertension Hypothyroid IBS (irritable bowel syndrome) Lactose intolerance Memory impairment Osteoarthritis Osteopenia Raynaud's disease Rheumatoid aortitis Seasonal allergies Tonsillectomy planned Physical Therapy Inpatient Evaluation/Re-Eval M1 PT/OT-IP Prior Functional Status Start: 05/30/24 16:59 Freq: NEEDED Status: Active Protocol: Document 05/30/24 15:15 AB (Rec: 05/30/24 17:11 AB [id number]) Medical Review Prior Functional Status Medical History Reviewed Yes Communication able to make needs known; with slight confusion Mobility and Gait pt staetd that she was independent witha ll mobiltiies and ambulation without AD Social History Household Members spouse Living Arrangements House Number of Floors (Floors) One Floor Number of Stairs To Enter/Railing? 2 platform steps to enter the house 1 step down to living room Home Environment Standard Height Toilet,High Toilet,Walk in Shower,Bidet Home Equipment Front Wheel Walker,Raised Toilet Seat w/Armrests,Shower Seat with Backrest M2 PT-IP Current Condition Start: 05/30/24 16:59 Freq: NEEDED Status: Active Protocol: Document 05/30/24 15:15 AB (Rec: 05/30/24 17:11 AB [id number]) Physical Therapy Current Condition Current Condition Evaluation Date 05/30/24 Treatment Diagnosis s/p L TIFFANI anterior; difficulty in walking Onset Date 05/30/24 M3 PT-IP Subjective Start: 05/30/24 16:59 Freq: NEEDED Status: Active Protocol: Document 05/30/24 15:15 AB (Rec: 05/30/24 17:11 AB [id number]) Subjective Physical Therapy Visit Type Type Initial Evaluation Visit Start Time 15:15 Visit Stop Time 16:00 Number of TRANSPORTATION INSPECTOR Visits 0 Physical Therapy Visit Comments Patient Comments agreeable to do PT Therapy Pain Assessment Pain When Pain Assessed At Rest Pain Present Pain Present Pain Reported Location Left Hip Intensity 2 Scale Used increases to 4/10 with movement Pain Behaviors Guarding Pain Management Techniques Apply Cold,Distraction, Modification of Treatment,Re- positioning,Timing of Activity with Medications M4 PT-IP Mobility and Gait Start: 05/30/24 16:59 Freq: NEEDED Status: Active Protocol: Document 05/30/24 15:15 AB (Rec: 05/30/24 17:11 AB [id number]) PT-Bed Mobility Assessment Supine to Sit Supine to Sit Moderate Assistance,Head of Bed Elevated,Bedrails Sit to Supine Sit to Supine Moderate Assistance PT-Transfer Assessment Sit to and From Stand Sit to and from Stand Moderate Assistance,1 Person Assistance,Use of Upper Extremities Equipment Transfer Assistive Device Gait Belt,Front Wheeled Walker Orthotic/Prosthetic Devices or Brace: No Comments Mobility Comments pt supine in bed. NAC in room to assist pt to use the toilet . PT took over pt's care. reviewed pt's LLE anterior hip precautions. pt completed supine to sit mod A and cues. pt has a leg strap that she uses to assist LLE in bed. pt completed step transfer to bedside commode using FWW mod A and cues. completed sit to stand from bedside commode mod A and cues and transfer back to EOB mod A and cues using FWW. pt sat on EOB. obtained PLOF and home set up from pt. post-op folder provided and reviewed contents. pt agreed to ambulate in room. sit to stand from EOB mod A and ambulated in room using FWW min A and cues. pt requested to go back to bed. completed sit to supine mod A and cues. positioned pt in bed. call light and table placed within reach. caregiver training set up at ~ 9/930 am tomorrow. pt informed her spouse. Gait Assessment Gait Gait Assistance Required: Minimum Assistance Distance (Feet) 30 Able to Maintain Weight Bearing Status Yes During Gait Assistive Devices Assistive Device Gait Belt,Front Wheeled Walker Orthotic/Prosthetic Devices or Brace: No Gait Deviations General Gait Pattern Antalgic,Decreased Feet Clearance Factors Limiting Gait Function Factors Limiting Gait Function Decreased Activity Tolerance, Decreased Strength,Difficulty Following Directions,Limited Range of Motion,Pain,Poor Balance,Poor Safety Awareness PT-Balance Assessment Sitting Balance and Reactions Static Sitting Balance Ability Normal Dynamic Sitting Balance Ability Good Standing Balance and Reactions Static Standing Balance Ability Fair Dynamic Standing Balance Ability Fair Device Used FWW M5 PT-IP Objective Assessments Start: 05/30/24 16:59 Freq: NEEDED Status: Active Protocol: Document 05/30/24 15:15 AB (Rec: 05/30/24 17:11 AB [id number]) Orientation Orientation/Cognition Level of Alertness Alert Orientation Name,Place,Situation Language Function Ability No Deficits Noted Safety Awareness Decreased Safety Awareness Memory Description Short Term Impaired Gross Range of Motion Lower Extremity ROM Assessment Within Functional Limits Strength Lower Extremity Strength Assessment Left Impaired Hip 3+/5 Knee 4-/5 Sensation Assessment Sensation Gross Sensation WNL Muscle Tone Muscle Tone WNL Yes M6 PT-IP Treatment Start: 05/30/24 16:59 Freq: NEEDED Status: Active Protocol: Document 05/30/24 15:15 AB (Rec: 05/30/24 17:11 AB [id number]) Physical Therapy Treatment Education Education Provided Precautions,Weight Bearing Status,Post-Op Packet,Safety M7 PT-IP Assessment and Plan Start: 05/30/24 16:59 Freq: NEEDED Status: Active Protocol: Document 05/30/24 15:15 AB (Rec: 05/30/24 17:11 AB [id number]) PT Summary Assessment and Plan Potential Rehabilitation Potential Fair Status of Condition at Evaluation Evolving Summary Impairments Pain,ROM,Strength,Balance, Coordination,Sensation,Tone, Cognition,Bed Mobility, Transfers,Gait,Activity Tolerance Assessment Summary pt is a 68 y/o F s/p L TIFFANI anterior approach POD 0. pt with L hip anterior precautions and is WBAT. pt requiring mod A for bed mobility and transfers and able to ambulate using fWW min A and cues ~ 20 ft. caregiver training set up for tomorrow at ~ 9-930 am. will continue to assess. Goals Bed Mobility Goal Independent Transfer Goal Independent,Front Wheeled Walker Gait Goal Independent,Front Wheel Walker Gait Distance 200 Other Goals up/down 2 platform steps using FWW SBA Days to Meet Goals 5 Frequency of Treatment Frequency Of Treatment Twice a Day Treatment Plan Physical Therapy Treatment Plan Bed Mobility Training,Transfer Training,Gait Training, Therapeutic Exercise,Balance Retraining,Post Op Education, Discharge Planning,Hot or Cold Pack,Neuromuscular Re-ed, Coordination Retraining,Manual Therapy Precautions Anterior Hip Precautions No Hip Extension,No Hip External Rotation Weight Bearing Status Weight Bearing Status Weight Bear as Tolerated Allowed Weight Bearing Amount (enter % LLE WBAT or #) (%) Recommendations To Nursing Amount of Assist Needed 1 Person Assist Discharge Recommendations PT Discharge Recommendations Home with Assistance, Outpatient PT Transportation Needs at Discharge Private Vehicle
--- NOTE | 2024-05-30 16:14 | OT.IPNOTE ---
Pt just finished seeing PT and just wanting to rest, to check on pt tomorrow for OT eval.
[2024-05-30] MEDS: CEFAZOLIN 2 GM/100 ML PREMIX 100 ML IV (16:15)
[2024-05-30] MEDS: ASPIRIN EC 81 MG TABLET PO (20:08)
[2024-05-31] MEDS: CEFAZOLIN 2 GM/100 ML PREMIX 100 ML IV (00:07)
[2024-05-31] MEDS: IBUPROFEN 400 MG TABLET PO ×3 (00:11→09:56)
[2024-05-31] MEDS: HYDROCODONE/ACET 5/325 TABLET 1 TAB PO ×2 (02:45→06:30)
[2024-05-31] MEDS: LEVOTHYROXINE 75 MCG TABLET PO (05:39)
[2024-05-31 06:38] LABS: Hematocrit 25.5 % (36-46); Hemoglobin 8.9 g/dL (12.0-16.0)
--- NOTE | 2024-05-31 07:16 | PM.DS.1 ---
History of Present Illness History of Present Illness Date Patient Seen: 05/31/24 Time Patient Seen: 07:16 Chief complaint: Right TIFFANI 05/30 Narrative: Operative Date/Time/Diagnoses Date of procedure: 05/30/24 Time of procedure: 08:00 Pre-op diagnosis: LEFT HIP OA Post-op diagnosis: same Procedure & Clinicians Procedure: Left total hip arthroplasty anterior approach Same procedure as scheduled: Yes Indications: The patient has had progressively worsening left hip pain with radiographic changes consistent with arthritis. Non-operative management has failed and the patient has requested total hip replacement. The risks, benefits and alternatives to surgery were discussed with the patient prior to proceeding. Risks discussed included, but were not limited to, failure to relieve pain, leg length discrepancy, dislocation, stiffness, infection, nerve damage, deep venous thrombosis, pulmonary embolism, stroke, coma, heart attack, permanent paralysis and , as well as the potential need for eventual revision of the prosthetic. Surgeon: Chante Spencer Education Reporter: Cecil Snyder Anesthesia Type: General and Spinal Operative Notes Findings: Severe right hip OA, adequate stability, adequate bone Closure Type: primary Specimen(s): none sent Prosthetic devices, grafts, tissues, transplants, or devices: Spencer and nephew 46 mm R3, neutral poly liner, two 6.5 mm screw, size 2 standard offset anthology, 32 by-3 cobalt chrome head Estimated Blood Loss (mL): 250 Blood products transfused: none Discharge Providers Provider Discharge Date: 05/31/24 Primary care physician: James Flynn MD Consults: 05/30/24 06:00 Consult to Anesthesiology Routine Comment: Consulting Provider: Anesthesiologist Reason for consultation: Regional block for post operative pain control 05/30/24 11:51 Consult to Discharge Planning Routine Comment: Consult to Occupational Therapy Evaluate & Treat Comment: Physician Instructions: Evaluate and treat Consult to Physical Therapy Evaluate & Treat Comment: Physician Instructions: post op TIFFANI protocol Discharge provider: Shanika Landry PA-C Summary Hospital Course Discharge Diagnosis: Right hip osteoarthritis, s/p right total hip arthroplasty Hospital Course: Ms Finch's hospital course was unremarkable. On the morning of POD# 1, she was feeling well and wanted to go home. She worked w/ PT yesterday and felt comfortable with walking; caregiver training with spouse scheduled today. She was eating and voiding without difficulty and her pain was well-controlled with hydrocodone. Exam Vital Signs (past 8 hours): Oxygen Delivery Method Room Air Oxygen Flow Rate 0 Narrative Exam Narrative: 5/5 strength in hip flexors, quadriceps, hamstrings, PF, DF, EHL on right. Sensation to light touch intact throughout RLE. Calf soft and compressible. Dressing CDI. Objective Labs 05/31/24 05:35 Labs: Laboratory Results - last 24 hr 05/31/24 05:35 Hgb 8.9 L Hct 25.5 L PFSH Medical History Easy bruisability Osteoarthritis GERD (gastroesophageal reflux disease) HLD (hyperlipidemia) Seasonal allergies Raynaud's disease Demyelinating disease (~2007) Tonsillectomy planned Cholecystectomy planned Hernia Cataract Memory impairment Cardiac dysrhythmia Lactose intolerance IBS (irritable bowel syndrome) Osteopenia Rheumatoid aortitis Fibromyalgia Hiatal hernia Hypothyroid Anxiety Depression Hypertension Constipation Chronic GERD Adenomatous colon polyp Colonoscopy planned Sorto's esophagus Surgical History Hx of bilateral cataract extraction Hx of hand surgery Hx of hernia repair Hx of cholecystectomy History of Shilpa fundoplication History of surgery Hx of tonsillectomy History of arthroplasty of left shoulder History of right oophorectomy Hx of appendectomy Social History household members: spouse Smoking Status: Never smoker alcohol intake: current Discharge Assessment & Plan Assessment and Plan Assessment: Right hip osteoarthritis, s/p right total hip arthroplasty Plan of Treatment: D/c home, multimodal pain control, outpt PT, ASA 81mg BID for VTE prophylaxis, f/u in office in 2 weeks as scheduled. Discharge Plan Discharge Plan Patient Disposition: Home Discharge orders & Medications Discharge Orders: Discharge (Order); Ordered 05/31/24 Ordered By: Shanika Landry Prescriptions: New hydrocodone-acetaminophen 5-325 mg Tablet 1 tab PO Q4-6H PRN (Reason: Pain, Moderate (4-6)) Qty: 30 0RF Continued atorvastatin 20 mg tablet 20 mg PO DAILY lisinopril 20 mg tablet 20 mg PO DAILY acetaminophen 650 mg Tablet Extended Release 1,300 mg PO PRN PRN (Reason: Pain (Scale Score 4-6)) Qty: 0 levothyroxine [Synthroid] 50 mcg tablet 75 mcg PO DAILY hydroxychloroquine 200 mg tablet 300 mg PO DAILY duloxetine 20 mg capsule,delayed release(DR/EC) 20 mg PO DAILY sertraline 100 mg Tablet 150 mg PO DAILY ibuprofen 400 mg Tablet 400 mg PO Q4HR Qty: 180 1RF aspirin 81 mg Tablet,Delayed Release (Dr/Ec) 81 mg PO BID Qty: 90 0RF Patient Comments: for post op ferrous sulfate [iron] 325 mg (65 mg iron) Tablet 325 mg PO DAILY cholecalciferol (vitamin D3) [Vitamin D3] 50 mcg (2,000 unit) Capsule 50 mcg PO DAILY Follow up/Referrals: James Flynn MD [Primary Care Provider] - Chante Spencer MD [Physician] - 06/13/24 1:30 pm (Follow up w/ Randall Snyder PA-C, at [facility] office in [place].) Diet/Activity/Treatments Diet: Diet as Tolerated Activity: WBAT, anterior hip precautions. Cold/Heat Therapy: Ice to hip as needed for pain. Skin/Wound/Dressing Care Report to your healthcare provider any signs of infection, such as:: chills, fever, night sweats, unusual drainage and unusual redness Dressing: May shower. Leave dressing in place until follow up in office. No bathing or otherwise soaking incision. Call the office if the dressing becomes saturated inside. Visit Report/Discharge Packet Instructions: DI for Hip Replacement, DI for Constipation, How to Prevent Falls, DI for Prescription Opioid Use Stand Alone Forms: Patient Portal/API, Stroke Signs & Symptoms, Surgery Discharge Discharge Data Primary Care Provider: James Flynn Attending Provider: Chante Spencer
--- NOTE | 2024-05-31 08:45 | CM.DANOTE ---
Initial DCP Assessment Visit Note Reviewed EMR and team rounds for status updates. Met with pt at bedside to introduce self and role, pt was found to be alert/oriented, eating her breakfast, and states that her pain is well controlled. She lives independently with her in their own home in [place]. Pt's will be here between 9-9:30am this morning for cg training w/PT, after which she will d/c home. Spouse will transport. Payor: Medicare Attending: Dr. Chante Spencer Pt is a 68 year-old F post-op day 1 from her R-total hip arthroplasty surgery. She consulted with Dr. Spencer for evaluation of her right hip pain in April, which she states is always in constant pain. Her pain now interferes with her ability to manage her ADL's, and limits her ability to walk. She tried conservative measures such as NSAIDS and activity modification with no lasting benefit. She also had L-total hip arthroplasty last year, which has been stable with no issues. Pt does have all DME at home necessary for home recovery, her will assist with her care needs. DCP will continue to follow and assist with any further developing needs prior to d/c. This CHANNEL MARKETING SPECIALIST did provide her with in-home caregiving resources, per her request. Discharge Planning/Care Management CM Discharge Assessment Start: 05/31/24 08:43 Freq: Status: Active Protocol: Document 05/31/24 08:43 DPL (Rec: 05/31/24 08:45 DPL [id number]) Discharge Planning Assessment Assigned Infusion Rn TERESITA Torres Advance Directives? No History Provided By Patient,Medical Record Has Patient been admitted in last 30 No days? Prior Living Arrangements House Household Members spouse Type of transporation used prior to Drives own vehicle admit Independent with ADL's Yes Is patient alert and oriented? Yes DME Already Rented / Owned Elevated Toilet Seat,FWW / Walker Patient/Family Preference OP PT Therapy Barriers to Discharge No Discharge Plan Home Referrals Initiated None needed Whiteboard Updated in Patient Room with Yes name and ext. # of Infusion Rn Review Status In Process Please Provide Date Initial DC 05/31/24 Assessment Was Performed Pre-Anesthesia Assessment Start: 05/24/24 13:40 Freq: Status: Complete Protocol: Document 05/24/24 13:40 LB (Rec: 05/24/24 14:25 LB [id number]) Pre-Anesthesia Assessment PAC Comment H&P not in system at time of phone assessment. Preferred Name Vicenta Patient Information Reviewed Via Phone Assessment Assessment Completed With Patient Diagnostic Results BMP/CMP,CBC,EKG,Other Primary Care Provider Keely Driscoll Medical Clearance Received Not Applicable Seen Specialist in Last 12 Months Yes Specialist Seen Orthopedist,Other Primary Language Uruguayan Preferred Language U[place] Marine Structural Welder Required No Height 149.86 cm Weight 56.699 kg Body Mass Index (BMI) 25.2 Hearing Ability Normal Visual Assist Glasses Dentition Type Teeth, Natural Present Barriers to Learning None Other Aids No Hx Anesthesia Reactions Yes: PONV s/p appendectomy Hx Family Anesthesia Reaction Yes: Dva-Ankmwjhjcnq-avzsyr if from demerol or phenergan- survived Hx Malignant Hyperthermia No Hx Blood Transfusions No Hx Blood Transfusion Reaction No Anesthesia Review Requested No Powerhouse Mechanic No alcohol intake current alcohol intake frequency holidays/special occasions only Smoking Status Never smoker Substance Use Type does not use Pain Present Pain Reported Comment right hip. Musculoskeletal Symptoms Arthralgias,Difficulty Walking ,Joint Stiffness,Radiating Pain into Limb,Tingling History of Falling (Recent or History of No ) Patient is completely paralyzed or No completely immobile Mental Status Oriented to own ability Is patient on oxygen? No Does patient have BORREGO/SOB No Hx Sleep Apnea No CPAP/BIPAP use not prescribed Currently Taking a Beta Porsha No Can You Climb a Flight of Stairs Without Yes SOB Hx Chest Pain No Hx SOB No Hx Syncope or Dizziness No Anti-Coagulant Therapy No Has a Ammunition Assembly Laborer No Cardiac Testing No Hx Pacemaker/ICD No Diet Type At Home Lactose Intolerant Bladder Pattern Incontinent Urinary Catheter Present No Hx Urinary Self Catheterization No Diabetes No HgbA1C 5.5 Date 04/28/24 Patient No Lactating No Hx Drug Resistant Organism No Presence of External or Internal Medical Yes: Left shoulder left hip, Devices screws right foot, hernia mesh Have you had any close contact with No someone diagnosed with COVID-19? Are you experiencing any of these No symptoms symptoms? Received a COVID vaccine? Yes Marital Status Lives With spouse Current Living Arrangements House Number of Floors (Floors) One Floor Number of Stairs To Enter/Railing? 2 stairs- no railing Support System Spouse Does the Patient Have Assistance After Yes Surgery Patient Discharge Plan Description Return Home Additional comment overnight LOS per surgeon. Feels Safe in Current Environment Yes Do you have a plan to hurt yourself or No Plan others? Do You Have Any Spiritual Beliefs That No May Affect Your HC Choices? Do You Have Any Cultural Practices That No May Affect Your HC Choices? Who Can We Speak to About Patient's Care family/friends Emergency Contact Name Polo () Emergency Contact Advance Directives? No Power of Aerodynamics Engineer No PAC Instructions Assistance for 24 hours post- op,Durable medical equipment, Medications to take/avoid,No ETOH/petroleum product on skin DOS,NPO,Post-op transportation,Pre-surgical wash,Sensory aids,Sturdy shoes /comfortable clothes,Do not bring valuables and remove jewelry
--- NOTE | 2024-05-31 08:48 | OT.IP.EVAL ---
Current Diagnoses Unilateral primary osteoarthritis, right hip (05/30/24) Presence of unspecified artificial hip joint (05/30/24) Surgery Performed Operation Date: 05/30/24 07:45 Actual Procedures p Total Hip Arthroplasty/Anterior Approach(Right) - Chante Spencer MD Past Medical History (Last Reviewed 05/30/24 @ 07:04 by Andressa Morley, RN) Adenomatous colon polyp Anxiety Sorto's esophagus Cardiac dysrhythmia Cataract Cholecystectomy planned Chronic GERD Colonoscopy planned Constipation Demyelinating disease (~2007) Depression Easy bruisability Fibromyalgia GERD (gastroesophageal reflux disease) Hernia Hiatal hernia HLD (hyperlipidemia) Hypertension Hypothyroid IBS (irritable bowel syndrome) Lactose intolerance Memory impairment Osteoarthritis Osteopenia Raynaud's disease Rheumatoid aortitis Seasonal allergies Tonsillectomy planned Surgical History (Last Reviewed 05/30/24 @ 07:04 by Andressa Morley, RN) History of arthroplasty of left shoulder History of Shilpa fundoplication History of right oophorectomy History of surgery Hx of appendectomy Hx of bilateral cataract extraction Hx of cholecystectomy Hx of hand surgery Hx of hernia repair Hx of tonsillectomy Occupational Therapy Inpatient Evaluation/Re-Eval M1 PT/OT-IP Prior Functional Status Start: 05/30/24 16:59 Freq: NEEDED Status: Active Protocol: Document 05/31/24 10:09 [facility] (Rec: 05/31/24 10:26 [facility] [id number]) Medical Review Prior Functional Status Medical History Reviewed Yes Communication able to make needs known; with slight confusion Mobility and Gait pt stated that she was independent with all mobilities and ambulation without AD Activities of Daily Living and IADL's Independent and had difficulty and needing increased time to complete. Social History Household Members spouse Living Arrangements House Number of Floors (Floors) One Floor Number of Stairs To Enter/Railing? 2 platform steps to enter the house 1 step down to living room Home Environment Standard Height Toilet,High Toilet,Walk in Shower,Bidet Home Equipment Front Wheel Walker,Raised Toilet Seat w/Armrests,Shower Seat with Backrest M2 OT-IP Current Condition Start: 05/31/24 10:08 Freq: Status: Active Protocol: Document 05/31/24 10:09 [facility] (Rec: 05/31/24 10:26 [facility] [id number]) Occupational Therapy Current Condition Current Condition Evaluation Date 06/07/24 Treatment Diagnosis S/P R TIFFANI Diagnosis Onset Date 05/30/24 Post Operative Precautions Anterior Hip Precautions No Hip Extension,No Hip External Rotation M3 OT- IP Subjective and Pain Start: 05/31/24 10:08 Freq: Status: Active Protocol: Document 05/31/24 10:09 [facility] (Rec: 05/31/24 10:26 [facility] [id number]) OT- Subjective Occupational Therapy Visit Type Type Initial Evaluation Visit Start Time 08:08 Visit Stop Time 08:48 Occupational Therapy Visit Comments Patient Comments Pt agreed to get up to use the bathroom and get dressed. Patient/Caregiver Goals To go home. OT Pain Assessment Pain When Pain Assessed During Mobility Pain Present Pain Present Pain Reported Location Right Hip Intensity 6 Scale Used Numeric (0 - 10) M4 OT- IP ADL's Start: 05/31/24 10:08 Freq: Status: Active Protocol: Document 05/31/24 10:09 [facility] (Rec: 05/31/24 10:26 [facility] [id number]) OT [id number] General Evaluation Self-Feeding Ability Independent OT ADL-Grooming Comments OT Grooming Comments Not performed. OT ADL-Oral Care Comments Oral Care Comments Pt able to rinse her mouth out with mouth wash. OT ADL-Dressing General Eval Upper Body Dressing Ability Independent Lower Body Dressing Ability Minimal Assistance Comments OT Dressing Comments Able to use stone carriage operator to assist with dressing needs. Assist for balance and assist to pull clothing up over her hips. OT ADL-Toileting General Evaluation Toileting Ability Minimal Assistance Areas Needing Assistance Manage Clothing Comments OT Toileting Comments Pt has a bidet at home to use. Educated pt to be mindful of RLE positioning for ADL needs. OT ADL-Bathing Comments OT Bathing Comments Suggested best to cover the dressing for showering needs. M5 OT- IP IADL's Start: 05/31/24 10:08 Freq: Status: Active Protocol: Document 05/31/24 10:09 [facility] (Rec: 05/31/24 10:26 [facility] [id number]) OT-Instrumental Activities of Daily Living Home Safety Awareness Awareness of Need for Assistance at Home Good Awareness Ability to Problem Solve Emergency Able to Problem Solve Situations Meal Preparation Meal Preparation Caregiver Provides Assist Can Repairer Can Repairer Caregiver Provides Assist M6 OT- IP Functional Cognition Start: 05/31/24 10:08 Freq: Status: Active Protocol: Document 05/31/24 10:09 [facility] (Rec: 05/31/24 10:26 [facility] [id number]) Cognitive Factors Limiting Selfcare Function Cognitive Ability Level of Alertness Alert Patient Orientation Name,Age,Birthday,Month,Date, Year,Day of Week,Place, Situation Attention Span Ability Capable of Focused Attention, Capable of Sustained Attention Ability to Follow Commands Able to Follow One Step Commands Safety Awareness No Deficits Noted Cognitive Comments Cognitive Assessment Comments Pt able to follow all hip precautions for ADL and mobility needs with good safety. Pt needing occasional cues to push up from the bed versus FWW for safety. OT- Vision and Hearing OT- Vision Assessment Visual Acuity Glasses All The Time Visual Attentiveness WFL Occular Pursuits WFL M7 OT- IP Mobility and Balance Start: 05/31/24 10:08 Freq: Status: Active Protocol: Document 05/31/24 10:09 [facility] (Rec: 05/31/24 10:26 [facility] [id number]) OT- Bed Mobility Assessment Supine to Sit Supine to Sit Assist Standby Assistance Scooting Scooting to Edge of Bed Standby Assistance Scooting Up and Down in Bed Standby Assistance OT-Transfer Assessment Sit to and From Stand Sit to and from Stand Standby Assistance Transfers Transfer Ability Standby Assistance Technique Transfer Destination Bed,Chair,Toilet Transfer Technique Stand Step Pivot Devices Transfer Assistive Devices Gait Belt,Front Wheeled Walker Comments Mobility Comments SBA with use of bed ladder. SBA with FWW and good safety to follow her hip precautions. M8 OT- IP Objective Assessments Start: 05/31/24 10:08 Freq: Status: Active Protocol: Document 05/31/24 10:09 [facility] (Rec: 05/31/24 10:26 [facility] [id number]) OT Gross Range of Motion Upper Extremity Range of Motion ROM Impairments WFL for needs. OT Strength Comments Strength Comments WFL for needs. M9 OT- IP Assessment and Plan Start: 05/31/24 10:08 Freq: Status: Active Protocol: Document 05/31/24 10:09 [facility] (Rec: 05/31/24 10:26 [facility] [id number]) OT Summary Assessment and Plan Potential Rehabilitation Potential Good Analytic Complexity at Evaluation Low Summary OT Impairments Pain,Strength,Balance, Functional Mobility,Dressing, Toileting,Bathing,Toilet Transfers,Shower Transfers, Activity Tolerance Progress Towards Goals Progressing Toward Goals Assessment Summary Pt Low complexity and main barriers are pain, steps, and will need assist for ADL needs or use of her LB dressing equipment. Pt has a supportive to assist and will go home when medically stable and have outpt PT. Goals Grooming Goal Independent Dressing Goal Independent,Secondary Education Professor,Sock Aid Toileting Goal Independent Bathing Goal Minimal Assistance Toilet Transfer Goal Independent Shower Transfer Goal Independent Days to Meet Goals 5 Frequency of Treatment Other frequency 5x/week Treatment Plan OT Treatment Plan ADL Training,Functional Mobility,Patient/Family Education,Discharge Planning Discharge Recommendations OT Discharge Recommendations Home with Assistance, Outpatient PT Home Equipment Needs HHSP, grab bar for the shower Transportation Needs at Discharge Private Vehicle
--- NOTE | 2024-05-31 09:05 | PT.IPTN ---
Current Diagnoses Unilateral primary osteoarthritis, right hip (05/30/24) Presence of unspecified artificial hip joint (05/30/24) Surgery Performed Operation Date: 05/30/24 07:45 Actual Procedures p Total Hip Arthroplasty/Anterior Approach(Right) - Chante Spencer MD Physical Therapy Treatment Note M2 PT-IP Current Condition Start: 05/30/24 16:59 Freq: NEEDED Status: Discharge Protocol: Document 05/30/24 15:15 AB (Rec: 05/30/24 17:11 AB [id number]) Physical Therapy Current Condition Current Condition Evaluation Date 05/30/24 Treatment Diagnosis s/p L TIFFANI anterior; difficulty in walking Onset Date 05/30/24 M3 PT-IP Subjective Start: 05/30/24 16:59 Freq: NEEDED Status: Discharge Protocol: Document 05/31/24 09:05 AB (Rec: 05/31/24 11:52 AB [id number]) Subjective Physical Therapy Visit Type Type Treatment Note Visit Start Time 09:05 Visit Stop Time 09:45 Number of SUPPLY AIDE Visits 0 Physical Therapy Visit Comments Patient Comments agreeable to do PT Therapy Pain Assessment Pain When Pain Assessed At Rest Pain Present Pain Present Pain Reported Location Right Hip Pain Management Techniques Distraction,Modification of Treatment,Re-positioning, Timing of Activity with Medications Left Hip Intensity 3 M4 PT-IP Mobility and Gait Start: 05/30/24 16:59 Freq: NEEDED Status: Discharge Protocol: Document 05/31/24 09:05 AB (Rec: 05/31/24 11:52 AB [id number]) PT-Bed Mobility Assessment Supine to Sit Supine to Sit Standby Assistance Sit to Supine Sit to Supine Minimal Assistance PT-Transfer Assessment Sit to and From Stand Sit to and from Stand Standby Assistance,Contact Guard Assistance,1 Person Assistance,Use of Upper Extremities Equipment Transfer Assistive Device Gait Belt,Front Wheeled Walker Orthotic/Prosthetic Devices or Brace: No Transfers Transfer Destination Bed,Chair Transfer Technique ambulated Comments Mobility Comments pt sitting on chair and spouse in room. pt agreeable to do PT. reviewed anterior hip precautions with pt and pt able to recall. spouse in room for caregiver training. spouse also aware of pt's hip precautions. caregiver training conducted. spouse was ablet o put safety belt on pt. assisted pt with sit to stand from the chair CGA and ambulated pt to EOB using FWW SBA to CGA. pt completed sit<>supine x 2 sets . requiring min A for sit to supine to bring LLE to bed max cues for techniques. spouse knows how to assist pt. PT educated and demonstrated up/down platform steps with pt and spouse x 2 sets. pt ambulated towards platform step using FWW SBA to CGA. completed up/down platform step using FWW min A with spouse assisting. pt ambulated back to her chair ~ 30 ft using FWW SBA to CGA spouse clarified the step to the living room and stated that there are 2 steps down to living room instead of one. educated pt and spouse on how to do steps using SPC + FURNACE REPAIRER. pt ambulated towards platform step again using FWW SBA to CGA. completed up/down platform step using SPC + FURNACE REPAIRER mod A and spouse was able to assist pt safely. pt ambulated back to the chair using FWW SBA to CGA. positioned pt on the chair. call light and table placed within reach. pt and spouse without furhter concerns. Gait Assessment Gait Gait Assistance Required: Standby Assistance,Contact Guard Assist Distance (Feet) 30 Assistive Devices Assistive Device Gait Belt,Front Wheeled Walker Orthotic/Prosthetic Devices or Brace: No Gait Deviations General Gait Pattern Antalgic,Decreased Feet Clearance Factors Limiting Gait Function Factors Limiting Gait Function Decreased Activity Tolerance, Decreased Strength,Limited Range of Motion,Pain,Poor Balance,Poor Safety Awareness Stair Climbing Assessment Evaluation Level of Assist On Stairs Minimal Assistance,Moderate Assistance,1 Person Assistance Devices Stair Climbing Assistive Devices Straight Cane,Front Wheel Walker Technique/Endurance Stair Climbing Direction Ascend and Descend Stair Climbing Technique Step to Step Number of Steps Climbed 2 Stair Climbing Set # Repetitions (reps) 4 M5 PT-IP Objective Assessments Start: 05/30/24 16:59 Freq: NEEDED Status: Discharge Protocol: Document 05/30/24 15:15 AB (Rec: 05/30/24 17:11 AB [id number]) Orientation Orientation/Cognition Level of Alertness Alert Orientation Name,Place,Situation Language Function Ability No Deficits Noted Safety Awareness Decreased Safety Awareness Memory Description Short Term Impaired Gross Range of Motion Lower Extremity ROM Assessment Within Functional Limits Strength Lower Extremity Strength Assessment Left Impaired Hip 3+/5 Knee 4-/5 Sensation Assessment Sensation Gross Sensation WNL Muscle Tone Muscle Tone WNL Yes M6 PT-IP Treatment Start: 05/30/24 16:59 Freq: NEEDED Status: Discharge Protocol: Document 05/31/24 09:05 AB (Rec: 05/31/24 11:52 AB [id number]) Physical Therapy Treatment Education Education Provided Precautions,Safety M7 PT-IP Assessment and Plan Start: 05/30/24 16:59 Freq: NEEDED Status: Discharge Protocol: Document 05/31/24 09:05 AB (Rec: 05/31/24 11:52 AB [id number]) PT Summary Assessment and Plan Potential Rehabilitation Potential Good Summary Impairments Pain,ROM,Strength,Balance, Coordination,Sensation,Tone, Cognition,Bed Mobility, Transfers,Gait,Activity Tolerance Progress Towards Goals Progressing Toward Goals Assessment Summary pt improving well with mobility. caregiver training conducted and spouse was able to assist pt safely with mobility. pt plans to go home and has outpt PT setup. pt may go home when medically stable . Goals Bed Mobility Goal Independent Transfer Goal Independent,Front Wheeled Walker Gait Goal Independent,Front Wheel Walker Gait Distance 200 Other Goals up/down 2 platform steps using FWW SBA Days to Meet Goals 5 Frequency of Treatment Frequency Of Treatment Twice a Day Treatment Plan Physical Therapy Treatment Plan Bed Mobility Training,Transfer Training,Gait Training, Therapeutic Exercise,Balance Retraining,Post Op Education, Discharge Planning,Hot or Cold Pack,Neuromuscular Re-ed, Coordination Retraining,Manual Therapy Precautions Anterior Hip Precautions No Hip Extension,No Hip External Rotation Weight Bearing Status Weight Bearing Status Weight Bear as Tolerated Allowed Weight Bearing Amount (enter % LLE WBAT or #) (%) Recommendations To Nursing Amount of Assist Needed 1 Person Assist Discharge Recommendations PT Discharge Recommendations Home with Assistance, Outpatient PT Transportation Needs at Discharge Private Vehicle
[2024-05-31] MEDS: lisinopriL 20 MG TABLET PO (09:55)
[2024-05-31] MEDS: HYDROXYCHLOROQUINE 200 MG TABLET 300 MG PO (09:55)
[2024-05-31] MEDS: DOCUSATE 100 MG CAPSULE PO (09:55)
[2024-05-31] MEDS: ASPIRIN EC 81 MG TABLET PO (09:55)
[2024-05-31] MEDS: DULOXETINE 20 MG CAPSULE PO (09:55)
[2024-05-31] MEDS: ATORVASTATIN 20 MG TABLET PO (09:56)
[2024-05-31] MEDS: FERROUS SULFATE 325 MG TABLET PO (09:56)
[2024-05-31] MEDS: SERTRALINE 50 MG TABLET 150 MG PO (09:56)
[2024-05-31] MEDS: CHOLECALCIFEROL (VITAMIN D3) 1,000 UNIT TABLET 2000 UNIT PO (09:57)
[2024-05-31] MEDS: SODIUM CHLORIDE 0.9% FLUSH 10 ML IV (09:57)
--- NOTE | 2024-05-31 11:04 | PC.NURSE ---
Pt feels ready to go home. She had her other hip replaced and she is familiar with her precautions and has been following them. Seen by PA and given d/c instructions. Seen by PT/OT and is safe to go home. Po pain meds have been effective. Has been voiding w/out diff. Tolerates diet w/out problems. Discharge instructions reviewed. Questions answered. Rx has been esent. Pt d/c to home via auto with spouse.
== END 2024-05-31 10:30 | disposition home or self-care (01) ==
LOC: OR 06:08 → AC 06:08
PROVIDERS: PCP Family Medicine; Referring Provider Orthopaedic Surgery; Visit Provider Orthopaedic Surgery
PROC: (CPT 27130; principal; 2024-05-30 07:45)
DX: M16.11 Unilateral primary osteoarthritis, right hip (principal); M25.751 Osteophyte, right hip
CPT/HCPCS: 27130; 36415; 73502; 76000; 85014; 85018; 97162; 97165; 97530; 97535; C1776; C9290; J0171; J0690; J1100; J1170; J2405; J2704

== ENCOUNTER → 2025-07-12 11:49 | Outpatient (CLI) | payer MEDICARE, OTHER, SELFPAY ==
[2024-05-30 13:00] VITALS: BMI 24.8
--- NOTE | 2025-07-12 11:53 | DI.RAD.S_ITS ---
PROCEDURE: XR ABDOMEN MIN 2V INDICATIONS: R/O KIDNEY STONE TECHNIQUE: 2 views of the abdomen were acquired. COMPARISON: None. FINDINGS: Surgical changes and devices: None. Bowel: No signs of free intraperitoneal air. Multiple small to moderate air- fluid levels throughout small bowel and colon. Soft tissues: No masses; visualized solid organ contours appear normal in size. No suspicious abdominal calcifications. Bones: No suspicious bony abnormalities. IMPRESSION: Air-fluid levels in the small bowel and colon, may be due to ileus or diarrhea. If persistent concern, short-term follow-up study may be obtained to assess for developing obstruction. Dictated by: Morro Cam M.D. on 07/12/2025 at 18:54 Approved by: Morro Cam M.D. on 07/12/2025 at 18:55
== END ==
PROVIDERS: PCP Family Medicine; Referring Provider Family Medicine; Visit Provider Family Medicine
DX: R31.9 Hematuria, unspecified (principal)
CPT/HCPCS: 74019

== ENCOUNTER → 2025-08-20 10:45 | Outpatient (CLI) | payer MEDICARE, OTHER, SELFPAY ==
[2024-05-30 13:00] VITALS: BMI 24.8
--- NOTE | 2025-08-20 10:47 | DI.MG.S_ITS ---
MM screening mammo BI: 08/20/2025. BI-RADS: 1 CLINICAL: 69-year old female for bilateral screening mammogram. Tyrer-Cuzick lifetime risk of 3.3%. No personal or first-degree family history of breast cancer. PRIOR EXAMS 07/09/2023, 04/06/2019. MAMMOGRAPHY TECHNIQUE: 2D and 3D (tomosynthesis) digital mammographic views obtained, with additional images as needed for full coverage. Current study was also evaluated with a Computer Aided Detection (CAD) system. DENSITY C. The breasts are heterogeneously dense, which may obscure small masses. MAMMOGRAPHY FINDINGS Bilateral: No suspicious mass, asymmetry, microcalcification, or other abnormality seen. IMPRESSION: * No evidence of malignancy. RECOMMENDATIONS Bilateral * Annual screening mammography. OVERALL ASSESSMENT CATEGORY BI-RADS-1: Negative. The [employer] recommends annual screening mammography beginning at age 40 for women with average risk of breast cancer. ELECTRONICALLY SIGNED: Julianna Sapp M.D. on 08/20/2025 at 10:10:14 PM PT Interpreting Station ID: [id number]
--- NOTE | 2025-08-20 10:48 | DI.RAD.S_ITS ---
PROCEDURE: XR DEXA AXIAL SKELETON INDICATIONS: Screening Mammogram/Osteoporosis Screening COMPARISON: [facility], [place], DEXA COMPLETE, 07/13/2023, 10:45. FINDINGS: Lumbar Spine: Bone mineral density 0.956 g/cm2, T score -0.8, prior T-score - 1.4, increased. Left Forearm: Bone mineral density 0.588 g/cm2, T score -1.8, prior T-score - 2.0, increased. (T score greater or equal to -1.0 to: NORMAL) (T score from -1.1 to -2.4: OSTEOPENIA) (T score less than or equal to -2.5: OSTEOPOROSIS) IMPRESSION: Osteopenia: Consider a repeat DEXA in 2-3 years to reassess this patient's status, or if there is a new clinical indication. There has been overall increase in bone density as compared to prior DEXA scan 07/13/2023. Follow-up guidelines as follows: Osteoporosis: Consider a repeat DEXA and Vertebral Fracture Assessment (VFA) exam in 2 years or sooner if medically necessary, to reassess this patient's status. Osteopenia: Consider a repeat DEXA in 2-3 years to reassess this patient's status, or if there is a new clinical indication. Normal: Consider a repeat DEXA in 5 years or sooner, or if there is a new clinical indication. All treatment decisions require clinical judgment and consideration of individual patient factors, including patient preferences, comorbidities, previous drug use, risk factors not captured in the FRAX model (e.g., frailty, falls, vitamin D deficiency, increased bone turnover, interval significant decline in bone density ) and possible under- or over-estimation of fracture risk by FRAX. In addition, the NOF Guide recommends that FDA-approved medical therapies be considered in postmenopausal women and men age >= 50 years with a: * Hip or vertebral (clinical or morphometric) fracture * T-score of <=-2.5 at the spine or hip * Ten-year fracture probability by FRAX of >= 3% for hip fracture or >=20% for major osteoporotic fracture. Dictated by: Kalee Daily RROlga Interpreted: Froylan Palmer MD on 08/20/2025 at 11:57 Transcribed by: ZION on 08/20/2025 at 11:59 Approved by: Froylan Palmer M.D. on 08/20/2025 at 14:11
== END ==
LOC: MAMMO 10:47
PROVIDERS: PCP Family Medicine; Referring Provider Family Medicine; Visit Provider Family Medicine
DX: Z12.31 Encounter for screening mammogram for malignant neoplasm of breast (principal); R92.333 Mammographic heterogeneous density, bilateral breasts; M85.89 Other specified disorders of bone density and structure, multiple sites; Z78.0 Asymptomatic menopausal state
CPT/HCPCS: 77063; 77067; 77080